=== PATIENT | female | born 1930 | race Caucasian/White ===

== ENCOUNTER 2016-12-12 12:18 | Emergency (ER) | payer MEDICARE, OTHER ==
[~2016-12-12] VITALS: Ht 157.5 cm; Wt 63.5 kg
[~2016-12-12 12:18] MED LIST: D50KC PO; ESCI5TAB PO; LVT.15T PO; MECL-124 PO; MICARDIS; OMEP20CA12 PO; ONDAN4ODT PO; RANI75TA30 PO; SULF1TAB35 PO; TRAM50TA2 PO; [UNRECOGNIZED DRUG - OTHER]
[2016-12-12] MEDS ORDERED: LIDOCAINE 2% VISCOUS 15 ML UDC PO ONE (13:00)
[2016-12-12] MEDS ORDERED: ANTACID SUSP 30 ML UDC (MYLANTA) PO ONE (13:00)
--- NOTE | 2016-12-12 13:03 | ED General ---
General Chief Complaint: General Problems/Pain Stated Complaint: NAUSEA Nursing Triage Note: AMB TO ROOM FELT FINE TODAY INTILL AFTER EATING A PIECE OF CHOCHLATE FEELING LIKE IT MAY BE STUCK HAS BEEN SPITTING UP PHELGM Nursing Sepsis Screen: No Definite Risk Source of Information: Patient Exam Limitations: No Limitations History of Present Illness Time Seen by Provider: 13:02 Initial Comments To ER with epigastric discomfort and a sensation of burning to the lower chest. This began after eating a piece of chocolate this morning. Prior to that she ate breakfast and took a large pill. She's had a Yasmine fundoplication is unable to vomit that she has been nauseated. Timing/Duration: 1-2 Days Severity: Moderate Allergies and Home Medications Allergies Coded Allergies: Cephalexin Monohydrate (Verified Allergy, Unknown, 02/17/15) Penicillins (Verified Allergy, Unknown, 02/17/15) Home Medications 1-2 QID (Reported) ?MG DAILY (Reported) Ergocalciferol 50,000 Unit Capsule 50,000 UNIT PO WEEKLY (Reported) Escitalopram Oxalate 5 Mg Tablet 1 EACH PO DAILY (Reported) Levothyroxine Sodium 150 Mcg Tablet 0.5 EACH PO DAILY (Reported) Meclizine Hcl 25 Mg Tab #30 1-2 TAB PO Q 4-6 HOURS PRN PRN FOR DIZZINESS Prescribed by: WILLIS BROTHERS on 11/05/11 0858 Omeprazole 20 Mg Capsule.dr #30 1 CAP PO DAILY (Reported) Ondansetron Hcl 4 Mg Tab #10 4 MG PO Q4H FOR NAUSEA AND VOMITING Prescribed by: WILLIS BROTHERS on 05/21/12 1534 Ranitidine Hcl 75 Mg Tablet 150 MG PO BID (Reported) Sulfamethoxazole/Trimethoprim 1 Each Tablet #20 1 TAB PO BID FOR INFECTION Prescribed by: GIL KYLE on 02/17/152128 Tramadol Hcl 50 Mg Tablet #20 50-100 MG PO Q6H PRN PRN flank pain Prescribed by: GIL KYLE on 02/17/152128 Constitutional: see HPI EENTM: see HPI Respiratory: no symptoms reported Cardiovascular: no symptoms reported Gastrointestinal: abdominal pain Genitourinary: no symptoms reported Musculoskeletal: no symptoms reported Skin: no symptoms reported Past Dklcftj-Mzwgrz-Gilgpy Hx Patient Social History Alcohol Use: Denies Use Recreational Drug Use: No Smoking Status: Never a Smoker Recent Foreign Travel: No Contact w/Someone Who Travel: No Recent Infectious Disease Expo: No Recent Hopitalizations: No Immunizations Up To Date Date of Influenza Vaccine: Jul 31, 2016 Surgeries HX Surgeries: Yes Surgeries: Abdominal, Gallbladder, Renal Respiratory Hx Respiratory Disorders: No Cardiovascular Hx Cardiac Disorders: Yes Cardiac Disorders: Hypertension Gastrointestinal Hx Gastrointestinal Disorders: Yes Endocrine Hx Endocrine Disorders: Yes Endocrine Disorders: Hypothyroidsim Physical Exam Vital Signs Vital Sign - Last 12Hours 12/12/16 12:29 Temp 97.8 Pulse 63 Resp 18 Pulse Ox 95 O2 Delivery Room Air Capillary Refill : Less Than 3 Seconds General Appearance: No Apparent Distress WD/WN Eyes: Bilateral Eye EOMI, Bilateral Eye Normal Inspection, Bilateral Eye PERRL HEENT: PERRL/EOMI TMs Normal Neck: Full Range of Motion Normal Inspection Respiratory: No Accessory Muscle Use No Respiratory Distress Gastrointestinal: Normal Bowel Sounds Non Tender Soft Extremity: Normal Capillary Refill Normal Inspection Neurologic/Psychiatric: Alert Oriented x3 Skin: Normal Color Warm/Dry Progress/Results/Core Measures Results/Orders Lab Results Laboratory Tests Test 12/12/16 13:14 Range/Units Amylase Level 68 25-125 U/L Basophils # (Auto) 0.0 0.0-0.1 10^3/uL Basophils (%) (Auto) 0 0-10 % Eosinophils # (Auto) 0.5 H 0.0-0.3 10^3/uL Eosinophils (%) (Auto) 6 0-10 % Hematocrit 41 35-52 % Hemoglobin 14.0 11.5-16.0 G/DL Lipase 53 8-78 U/L Lymphocytes # (Auto) 3.4 1.0-4.0 X 10^3 Lymphocytes (%) (Auto) 37 12-44 % Mean Corpuscular Hemoglobin 30 25-34 PG Mean Corpuscular Hemoglobin Concent 35 32-36 G/DL Mean Corpuscular Volume 88 80-99 FL Mean Platelet Volume 9.4 7.4-10.4 FL Monocytes # (Auto) 1.1 H 0.0-1.0 X 10^3 Monocytes (%) (Auto) 12 0-12 % Neutrophils # (Auto) 4.2 1.8-7.8 X 10^3 Neutrophils (%) (Auto) 46 42-75 % Platelet Count 336 130-400 10^3/uL Red Blood Count 4.60 4.35-5.85 10^6/uL Red Cell Distribution Width 14.0 10.0-14.5 % White Blood Count 9.2 4.3-11.0 10^3/uL My Orders Orders-GURDEEP RESENDEZ APRN Cbc With Automated Diff (12/12/16 13:00) Lipase (12/12/16 13:00) Amylase (12/12/16 13:00) Antacid Suspension (Mylanta Suspension (12/12/16 13:00) Lidocaine 2% Viscous 15 Ml (Xylocaine Vi (12/12/16 13:00) Ondansetron Oral Dissolve Tab (Zofran (12/12/16 13:15) Medications Given in ED Current Medications Medications Dose Ordered Sig/Hitesh Route Start Time Stop Time Status Last Admin Dose Admin Al Hydrox/Mg Hydrox/Simethicone 30 ml ONCE ONCE PO 12/12/16 13:00 12/12/16 13:02 DC 12/12/16 13:12 30 ML Lidocaine HCl 15 ml ONCE ONCE PO 12/12/16 13:00 12/12/16 13:02 DC 12/12/16 13:13 15 ML Ondansetron HCl 4 mg ONCE ONCE PO 12/12/16 13:15 12/12/16 13:16 DC 12/12/16 13:14 4 MG Vital Signs/I&O Vital Sign - Last 12Hours 12/12/16 12:29 Temp 97.8 Pulse 63 Resp 18 B/P Pulse Ox 95 O2 Delivery Room Air Departure Communication Progress Notes 1343-on arrival patient was given a glass of water to drink which she did without regurgitation or vomiting/dry heaving. At this time she feels better after GI cocktail and Zofran. Advised to use [id number] Pepcid or Maalox at home for any recurrent discomfort. Impression Impression: Primary Impression: Gastritis Qualified Code: K29.00 - Acute gastritis without bleeding Disposition: HOME, SELF-CARE Condition: Stable Departure-Patient Inst. Decision time for Depature: 13:44 Referrals: WILLIS AKERS MD (PCP/Family) Primary Care Physician Patient Instructions: Gastritis Add. Discharge Instructions: 1. Return to ER for any concerns 2. Follow-up with your doctor next week 3. You may use Maalox or Pepcid [id number] as directed on bottle for any recurrent pain. All discharge instructions reviewed with patient and/or family. Voiced understanding. GURDEEP RESENDEZ APRN Dec 12, 2016 13:02
[2016-12-12] MEDS ORDERED: ONDANSETRON 4 MG (ZOFRAN) ORAL DISSOLVE TAB PO ONE (13:15)
[2016-12-12 13:21] LABS: BASOPHILS % (AUTO) 0 % (0-10); EOSINOPHILS # (AUTO) 0.5 10^3/uL (0.0-0.3); EOSINOPHILS % (AUTO) 6 % (0-10); LYMPHOCYTES # (AUTO) 3.4 X 10^3 (1.0-4.0); LYMPHOCYTES % (AUTO) 37 % (12-44); MEAN CORPUSCULAR HEMOGLOBIN 30 PG (25-34); MEAN CORPUSCULAR HGB CONC 35 G/DL (32-36); MEAN CORPUSCULAR VOLUME 88 FL (80-99); MEAN PLATELET VOLUME 9.4 FL (7.4-10.4); MONOCYTES # (AUTO) 1.1 X 10^3 (0.0-1.0); MONOCYTES % (AUTO) 12 % (0-12); NEUTROPHILS # (AUTO) 4.2 X 10^3 (1.8-7.8); NEUTROPHILS % (AUTO) 46 % (42-75); PLATELET COUNT 336 10^3/uL (130-400); WHITE BLOOD COUNT 9.2 10^3/uL (4.3-11.0)
[2016-12-12 13:37] LABS: AMYLASE 68 U/L (25-125); LIPASE 53 U/L (8-78)
[2016-12-12 13:47] VITALS: BP 148/70
== END 2016-12-12 13:49 | disposition home or self-care (01) ==
LOC: EDUNIT# 12:18 → ER 12:23
DX: K29.00 Acute gastritis without bleeding (principal); I10 Essential (primary) hypertension; Z79.899 Other long term (current) drug therapy
CPT/HCPCS: 36415; 82150; 83690; 85025; 99281

== ENCOUNTER 2017-03-04 15:14 | Emergency (ER) | payer MEDICARE, OTHER ==
[~2017-03-04] VITALS: Ht 157.5 cm; Wt 65.8 kg
--- NOTE | 2017-03-04 16:01 | ED General ---
General Chief Complaint: Upper Extremity Stated Complaint: L ARM REDNESS/DISCOLORATION/NAUSEA/HEADACHE Nursing Triage Note: sTATED YESTERDAY WOKE WITH "LUMP" ON LEFT FOREARM THAT ITCHED. TODAY AREA IS RED AND HAS GROWN. FLAT NO PAIN. DENIES INJURY. ALSO STATES THAT SHE WAS NAUSEATED YESTERDAY AND TRIED TO VOMIT AND NOW HAS NECK AND HEAD PAIN. FREE ROM NOTED. A/O Nursing Sepsis Screen: No Definite Risk Source of Information: Patient, Family Exam Limitations: No Limitations History of Present Illness Time Seen by Provider: 16:00 Allergies and Home Medications Allergies Coded Allergies: Cephalexin Monohydrate (Verified Allergy, Unknown, 03/04/17) Penicillins (Verified Allergy, Unknown, 03/04/17) Home Medications Ergocalciferol 50,000 Unit Capsule, 50,000 UNIT PO WEEKLY, (Reported) Escitalopram Oxalate 5 Mg Tablet, 1 EACH PO DAILY, (Reported) Levothyroxine Sodium 150 Mcg Tablet, 0.5 EACH PO DAILY, (Reported) Meclizine Hcl 25 Mg Tab, 1-2 TAB PO Q 4-6 HOURS PRN, #30 Ref 0 FOR DIZZINESS Prescribed by: WILLIS BROTHERS on 11/05/11 0858 Omeprazole 20 Mg Capsule.dr, 1 CAP PO DAILY, #30 (Reported) Ondansetron Hcl 4 Mg Tab, 4 MG PO Q4H, #10 FOR NAUSEA AND VOMITING Prescribed by: WILLIS BROTHERS on 05/21/12 1534 Ranitidine Hcl 75 Mg Tablet, 150 MG PO BID, (Reported) Sulfamethoxazole/Trimethoprim 1 Each Tablet, 1 TAB PO BID, #20 Ref 0 FOR INFECTION Prescribed by: GIL KYLE on 02/17/152128 Tramadol Hcl 50 Mg Tablet, 50-100 MG PO Q6H PRN for flank pain, #20 Ref 0 Prescribed by: GIL KYLE on 02/17/152128 [Micardis] , ?MG DAILY, (Reported) [Mytab Chew] , 1-2 QID, (Reported) Past Wnohyfz-Nlyzaa-Ukiznk Hx Patient Social History Alcohol Use: Denies Use Recreational Drug Use: No Smoking Status: Never a Smoker 2nd Hand Smoke Exposure: No Recent Foreign Travel: No Contact w/Someone Who Travel: No Recent Infectious Disease Expo: No Recent Hopitalizations: No Immunizations Up To Date Tetanus Booster (TDap): More than 5yrs Date of Influenza Vaccine: Jul 31, 2016 Surgeries HX Surgeries: Yes (SPLEEN, ) Surgeries: Abdominal, Gallbladder, Renal, Tonsillectomy Respiratory Hx Respiratory Disorders: No Cardiovascular Hx Cardiac Disorders: Yes Cardiac Disorders: Hypertension Neurological Hx Neurological Disorders: No Genitourinary Hx Genitourinary Disorders: Yes Genitourinary Disorders: Kidney Stones Gastrointestinal Hx Gastrointestinal Disorders: Yes Gastrointestinal Disorders: Gastroesophageal Reflux Musculoskeletal Hx Musculoskeletal Disorders: No Endocrine Hx Endocrine Disorders: Yes Endocrine Disorders: Hypothyroidsim HEENT HX ENT Disorders: No Cancer Hx Cancer: No Psychosocial Hx Psychiatric Problems: No Integumentary HX Skin/Integumentary Disorder: No Blood Transfusions Hx Blood Disorders: No Physical Exam Vital Signs Vital Sign - Last 12Hours 03/04/17 15:34 Temp 98.8 Pulse 74 Resp 18 B/P (MAP) 184/87 Pulse Ox 99 Capillary Refill : Less Than 3 Seconds Progress/Results/Core Measures Results/Orders Lab Results Laboratory Tests Test 03/04/17 17:10 Range/Units White Blood Count 16.1 H 4.3-11.0 10^3/uL Red Blood Count 4.66 4.35-5.85 10^6/uL Hemoglobin 14.1 11.5-16.0 G/DL Hematocrit 42 35-52 % Mean Corpuscular Volume 90 80-99 FL Mean Corpuscular Hemoglobin 30 25-34 PG Mean Corpuscular Hemoglobin Concent 34 32-36 G/DL Red Cell Distribution Width 14.2 10.0-14.5 % Platelet Count 380 130-400 10^3/uL Mean Platelet Volume 9.6 7.4-10.4 FL Neutrophils (%) (Auto) 61 42-75 % Lymphocytes (%) (Auto) 24 12-44 % Monocytes (%) (Auto) 12 0-12 % Eosinophils (%) (Auto) 3 0-10 % Basophils (%) (Auto) 0 0-10 % Neutrophils # (Auto) 9.7 H 1.8-7.8 X 10^3 Lymphocytes # (Auto) 3.9 1.0-4.0 X 10^3 Monocytes # (Auto) 2.0 H 0.0-1.0 X 10^3 Eosinophils # (Auto) 0.4 H 0.0-0.3 10^3/uL Basophils # (Auto) 0.1 0.0-0.1 10^3/uL Neutrophils % (Manual) 56 % Lymphocytes % (Manual) 24 % Monocytes % (Manual) 16 % Eosinophils % (Manual) 2 % Band Neutrophils 2 % Toxic Granulation 1+ Blood Morphology Comment NORMAL Erythrocyte Sedimentation Rate 48 H 0-30 MM/HR Prothrombin Time 13.3 12.2-14.7 SEC INR Comment 1.0 0.8-1.4 Activated Partial Thromboplast Time 26 24-35 SEC Sodium Level 138 135-145 MMOL/L Potassium Level 4.2 3.6-5.0 MMOL/L Chloride Level 104 98-107 MMOL/L Carbon Dioxide Level 23 21-32 MMOL/L Anion Gap 11 5-14 MMOL/L Blood Urea Nitrogen 19 H 7-18 MG/DL Creatinine 1.65 H 0.60-1.30 MG/DL Estimat Glomerular Filtration Rate 29 BUN/Creatinine Ratio 12 Glucose Level 90 70-105 MG/DL Calcium Level 9.6 8.5-10.1 MG/DL Total Bilirubin 0.5 0.1-1.0 MG/DL Aspartate Amino Transf (AST/SGOT) 55 H 5-34 U/L Alanine Aminotransferase (ALT/SGPT) 39 0-55 U/L Alkaline Phosphatase 79 40-136 U/L C-Reactive Protein High Sensitivity 1.01 H 0.00-0.50 MG/DL Total Protein 7.4 6.4-8.2 G/DL Albumin 3.8 3.2-4.5 G/DL My Orders Orders - LALO BECKHAM Cbc With Automated Diff (03/04/17 16:41) Comprehensive Metabolic Panel (03/04/17 16:41) Hs C Reactive Protein (03/04/17 16:41) Erythrocyte Sedimentation Rate (03/04/17 16:41) Ns Iv 1000 Ml (Sodium Chloride 0.9%) (03/04/17 16:41) Protime With Inr (03/04/17 16:41) Partial Thromboplastin Time (03/04/17 16:41) Manual Differential (03/04/17 17:10) Vital Signs/I&O Vital Sign - Last 12Hours 03/04/17 15:34 Temp 98.8 Pulse 74 Resp 18 B/P (MAP) 184/87 Pulse Ox 99 Blood Pressure Mean: 119 Departure Communication Progress Notes Patient refused IV fluids and IV. Impression Impression: Primary Impression: Ecchymosis of forearm Additional Impression: Volume depletion Disposition: 01 HOME, SELF-CARE Condition: Improved Departure-Patient Inst. Decision time for Depature: 18:15 Referrals: WILLIS AKERS MD (PCP/Family) Primary Care Physician Patient Instructions: Dehydration, Adult (DC) Add. Discharge Instructions: All discharge instructions reviewed with patient and/or family. Voiced understanding. Medications as instructed. Continue usual home medications. Elevate the left forearm on pillows above the level of the heart. Ice packs or heating pads as needed for pain. Shower with antibacterial soap. Follow-up with your family practitioner for recheck this week, call first thing Sunday morning for appointment time. Return to the emergency department for worsened swelling, pain, bruising, redness, fever, vomiting, abdominal swelling, rectal bleeding, black stools, vomiting blood, discoloration of the fingers, numbness, weakness, chest pain, shortness of breath, difficulty swallowing, or any other concerns. Scripts Ondansetron (Ondansetron Odt) 8 Mg Tab.rapdis 8 MG PO Q6H Y for NAUSEA/VOMITING-1ST LINE, #10 TAB 0 Refills Prov: LALO BECKHAM 03/04/17 Sulfamethoxazole/Trimethoprim (Bactrim Ds Tablet) 1 Each Tablet 1 EACH PO BID, #14 TAB 0 Refills Prov: LALO BECKHAM 03/04/17 LALO BECKHAM March 04, 2017 16:00
[2017-03-04] MEDS ORDERED: NS IV 1000 ML 1,000 ML IV ONE (16:41)
[2017-03-04 17:21] LABS: BASOPHILS # (AUTO) 0.1 10^3/uL (0.0-0.1); BASOPHILS % (AUTO) 0 % (0-10); EOSINOPHILS # (AUTO) 0.4 10^3/uL (0.0-0.3); EOSINOPHILS % (AUTO) 3 % (0-10); LYMPHOCYTES # (AUTO) 3.9 X 10^3 (1.0-4.0); LYMPHOCYTES % (AUTO) 24 % (12-44); MEAN CORPUSCULAR HEMOGLOBIN 30 PG (25-34); MEAN CORPUSCULAR HGB CONC 34 G/DL (32-36); MEAN CORPUSCULAR VOLUME 90 FL (80-99); MEAN PLATELET VOLUME 9.6 FL (7.4-10.4); MONOCYTES % (AUTO) 12 % (0-12); NEUTROPHILS # (AUTO) 9.7 X 10^3 (1.8-7.8); NEUTROPHILS % (AUTO) 61 % (42-75); PLATELET COUNT 380 10^3/uL (130-400); RED BLOOD COUNT 4.66 10^6/uL (4.35-5.85); RED CELL DISTRIBUTION WIDTH 14.2 % (10.0-14.5); WHITE BLOOD COUNT 16.1 10^3/uL (4.3-11.0)
[2017-03-04 17:29] LABS: PROTHROMBIN TIME PATIENT 13.3 SEC (12.2-14.7)
[2017-03-04 17:40] LABS: ALBUMIN 3.8 G/DL (3.2-4.5); BILIRUBIN,TOTAL 0.5 MG/DL (0.1-1.0); CALCIUM 9.6 MG/DL (8.5-10.1); CREATININE SERUM 1.65 MG/DL (0.60-1.30); POTASSIUM 4.2 MMOL/L (3.6-5.0); TOTAL PROTEIN 7.4 G/DL (6.4-8.2); hs C REACTIVE PROTEIN 1.01 MG/DL (0.00-0.50)
[2017-03-04 17:45] LABS: BAND NEUTROPHILS 2 %; EOSINOPHILS % (MANUAL) 2 %; LYMPHOCYTES % (MANUAL) 24 %; NEUTROPHILS % (MANUAL) 56 %
[2017-03-04 17:54] LABS: ERYTHROCYTE SEDIMENTATION RATE 48 MM/HR (0-30)
[2017-03-04] MEDS ORDERED: SULF1TAB35 PO (18:16)
[2017-03-04] MEDS ORDERED: ONDA8TAB13 PO (18:16)
[2017-03-04] MEDS ORDERED: RX-TRIMETH/SULFA. 160-800 MG (BACTRIM DS) TAB PPK#2 PO STA (18:18)
[2017-03-04] MEDS ORDERED: RX-ONDANSETRON 4 MG ODT (ZOFRAN) PPK #4 PO STA (18:27)
[2017-03-04 18:34] VITALS: BP 201/83
[2017-03-04] MEDS ORDERED: cloNIDine 0.1 MG (CATAPRES) TAB ONE (18:34)
[2017-03-04] MEDS ORDERED: cloNIDine 0.1 MG (CATAPRES) TAB PO ONE (18:45)
== END 2017-03-04 18:42 | disposition home or self-care (01) ==
LOC: EDUNIT# 15:14 → ER 15:16
DX: R23.3 Spontaneous ecchymoses (principal); I10 Essential (primary) hypertension; Z79.899 Other long term (current) drug therapy
CPT/HCPCS: 36415; 80053; 85007; 85027; 85610; 85652; 85730; 86141; 99283

== ENCOUNTER 2017-08-14 09:55 | Emergency (ER) | payer MEDICARE, OTHER ==
[~2017-08-14] VITALS: Ht 157.5 cm; Wt 63.5 kg
[~2017-08-14 09:55] MED LIST changes: +ONDA8TAB13 PO
[2017-08-14] MEDS ORDERED: COLE1TAB PO (10:17)
[2017-08-14] MEDS ORDERED: BUDE10.2 IH (10:17)
[2017-08-14] MEDS ORDERED: LEVO500T80 PO (10:27)
[2017-08-14] MEDS ORDERED: KETOROLAC 30 MG/ML VIAL IVP STA (10:28)
[2017-08-14 10:30] LABS: BILIRUBIN,URINE NEGATIVE (NEGATIVE); KETONES,URINE NEGATIVE (NEGATIVE); LEUKOCYTE ESTERASE ,URINE 3+ (NEGATIVE); NITRITE,URINE NEGATIVE (NEGATIVE); PH,URINE 5 (5-9); PROTEIN,URINE NEGATIVE (NEGATIVE); UROBILINOGEN,URINE NORMAL (NORMAL)
[2017-08-14 10:38] LABS: WBC,URINE >100 /HPF
--- NOTE | 2017-08-14 10:42 | ED Abdominal Pain ---
General Chief Complaint: Abdominal/GI Problems Stated Complaint: LOWER ABD PAIN Nursing Triage Note: PT CO OF LOWER ABD PAIN STARTED THIS AM, STATES HAD ON SUNDAY BUT IMPROVED AND CAME BACK, STATES DOES HAVE SOME PAIN AND BURNING UPON URINATION Sepsis Screen: No Definite Risk Source of Information: Patient Exam Limitations: No Limitations History of Present Illness Time Seen By Provider: 10:20 Initial Comments Here with report of lower abdominal pain that started this morning. She actually reports that she had this a few days ago and it went away. Last Sunday she was seen at the urgent care and started on antibiotic for possible pneumonia. She states that she's been feeling a little crummy over the past several days prior to that with fatigue. Denies shortness of breath, nausea, vomiting or diarrhea. Timing/Duration: 12 Hours Severity/Quality: Moderate Location: RLQ, LLQ, Suprapubic Radiation: No Radiation Activities at Onset: None Associated Symptoms: No Back Pain, No Chest Pain, No Fever/Chills, Fatigue, No Nausea/Vomiting, No Weakness Allergies and Home Medications Allergies Coded Allergies: Cephalexin Monohydrate (Verified Allergy, Unknown, 03/04/17) Penicillins (Verified Allergy, Unknown, 03/04/17) Home Medications Budesonide/Formoterol Fumarate 10.2 Gm Hfa.aer.ad, 2 PUFF IH BID, (Reported) Colestipol HCl 1 Gm Tablet, 1 GM PO BID, (Reported) Ergocalciferol 50,000 Unit Capsule, 50,000 UNIT PO WEEKLY, (Reported) Levofloxacin 500 Mg Tablet, 500 MG PO DAILY, (Reported) Levothyroxine Sodium 150 Mcg Tablet, 0.5 EACH PO DAILY, (Reported) Omeprazole 20 Mg Capsule.dr, 1 CAP PO DAILY, #30 (Reported) [Micardis] , ?MG DAILY, (Reported) [Mytab Chew] , 1-2 QID, (Reported) Review of Systems Constitutional: see HPI, No chills, No fever EENTM: No Symptoms Reported Respiratory: See HPI, Denies Cough Cardiovascular: No Symptoms Reported Gastrointestinal: See HPI, Abdominal Pain, Denies Diarrhea, Denies Nausea, Denies Vomiting Genitourinary: See HPI Musculoskeletal: no symptoms reported Skin: no symptoms reported All Other Systems Reviewed Negative Unless Noted: Yes Past Uxhdspo-Tpxnts-Vlmbjx Hx Patient Social History Alcohol Use: Denies Use Recreational Drug Use: No Smoking Status: Never a Smoker 2nd Hand Smoke Exposure: No Recent Foreign Travel: No Contact w/Someone Who Travel: No Recent Infectious Disease Expo: No Recent Hopitalizations: No Physical Abuse: No Sexual Abuse: No Immunizations Up To Date Tetanus Booster (TDap): More than 5yrs Date of Influenza Vaccine: Jul 31, 2016 Surgeries History of Surgeries: Yes (SPLEEN, ) Surgeries: Abdominal, Gallbladder, Renal, Tonsillectomy Respiratory History of Respiratory Disorde: No Cardiovascular History of Cardiac Disorders: Yes Cardiac Disorders: Hypertension Neurological History of Neurological Disord: No Genitourinary Genitourinary Disorders: Kidney Stones Gastrointestinal History of Gastrointestinal Di: Yes Gastrointestinal Disorders: Gastroesophageal Reflux Musculoskeletal History of Musculoskeletal Dis: No Endocrine History of Endocrine Disorders: Yes Endocrine Disorders: Hypothyroidsim Cancer History of Cancer: No Psychosocial History of Psychiatric Problem: No Suicide Risk Score: 0 Integumentary History of Skin or Integumenta: No Blood Transfusions History of Blood Disorders: No Family Medical History Significant Family History: No Pertinent Family Hx Physical Exam Vital Signs VS - Last 72 Hours, by Label 08/14/17 09:55 Temp 97.7 Pulse 82 Resp 16 B/P (MAP) 187/83 Pulse Ox 96 Capillary Refill : Less Than 3 Seconds General Appearance: WD/WN, no apparent distress Neck: full range of motion, supple Respiratory: lungs clear, normal breath sounds Cardiovascular: regular rate, rhythm, no murmur Gastrointestinal: normal bowel sounds, soft, tenderness (mild suprapubic) Extremities: non-tender, normal inspection Back: normal inspection, no CVA tenderness, no vertebral tenderness Neurologic/Psychiatric: alert, oriented x 3 Skin: normal color, warm/dry Progress/Results/Core Measures Results/Orders Lab Results Laboratory Tests Test 08/14/17 10:15 08/14/17 10:30 Range/Units Urine Color YELLOW Urine Clarity CLEAR Urine pH 5 5-9 Urine Specific [place] 1.010 L 1.016-1.022 Urine Protein NEGATIVE NEGATIVE Urine Glucose (UA) NEGATIVE NEGATIVE Urine Ketones NEGATIVE NEGATIVE Urine Nitrite NEGATIVE NEGATIVE Urine Bilirubin NEGATIVE NEGATIVE Urine Urobilinogen NORMAL NORMAL MG/DL Urine Leukocyte Esterase 3+ H NEGATIVE Urine RBC (Auto) 3+ H NEGATIVE Urine RBC NONE /HPF Urine WBC >100 H /HPF Urine Crystals NONE /LPF Urine Bacteria FEW H /HPF Urine Casts NONE /LPF Urine Mucus NEGATIVE /LPF Urine Culture Indicated YES White Blood Count 13.8 H 4.3-11.0 10^3/uL Red Blood Count 4.53 4.35-5.85 10^6/uL Hemoglobin 13.3 11.5-16.0 G/DL Hematocrit 40 35-52 % Mean Corpuscular Volume 88 80-99 FL Mean Corpuscular Hemoglobin 29 25-34 PG Mean Corpuscular Hemoglobin Concent 34 32-36 G/DL Red Cell Distribution Width 14.2 10.0-14.5 % Platelet Count 430 H 130-400 10^3/uL Mean Platelet Volume 9.5 7.4-10.4 FL Neutrophils (%) (Auto) 59 42-75 % Lymphocytes (%) (Auto) 24 12-44 % Monocytes (%) (Auto) 13 H 0-12 % Eosinophils (%) (Auto) 5 0-10 % Basophils (%) (Auto) 0 0-10 % Neutrophils # (Auto) 8.1 H 1.8-7.8 X 10^3 Lymphocytes # (Auto) 3.3 1.0-4.0 X 10^3 Monocytes # (Auto) 1.7 H 0.0-1.0 X 10^3 Eosinophils # (Auto) 0.6 H 0.0-0.3 10^3/uL Basophils # (Auto) 0.1 0.0-0.1 10^3/uL Sodium Level 137 135-145 MMOL/L Potassium Level 3.9 3.6-5.0 MMOL/L Chloride Level 106 98-107 MMOL/L Carbon Dioxide Level 20 L 21-32 MMOL/L Anion Gap 11 5-14 MMOL/L Blood Urea Nitrogen 15 7-18 MG/DL Creatinine 1.35 H 0.60-1.30 MG/DL Estimat Glomerular Filtration Rate 37 BUN/Creatinine Ratio 11 Glucose Level 96 70-105 MG/DL Calcium Level 10.0 8.5-10.1 MG/DL Total Bilirubin 0.6 0.1-1.0 MG/DL Aspartate Amino Transf (AST/SGOT) 23 5-34 U/L Alanine Aminotransferase (ALT/SGPT) 17 0-55 U/L Alkaline Phosphatase 86 40-136 U/L Total Protein 8.1 6.4-8.2 GM/DL Albumin 3.8 3.2-4.5 GM/DL My Orders Orders - KATIANA CHANDLER MD Ua Culture If Indicated (08/14/17 10:12) Cbc With Automated Diff (08/14/17 10:28) Comprehensive Metabolic Panel (08/14/17 10:28) Saline Lock/Iv-Start (08/14/17 10:28) Ketorolac Injection (Toradol Injection) (08/14/17 10:28) Chest Pa/Lat (2 View) (08/14/17 10:28) Urine Culture (08/14/17 10:15) Ns Iv 500 Ml (Sodium Chloride 0.9%) (08/14/17 11:57) Ns Iv 500 Ml (Sodium Chloride 0.9%) (08/14/17 11:50) Medications Given in ED Current Medications Medications Dose Ordered Sig/Hitesh Route Start Time Stop Time Status Last Admin Dose Admin Sodium Chloride 500 ml @ 0 mls/hr Q0M ONCE IV 08/14/17 11:57 08/14/17 11:58 DC 08/14/17 11:59 500 MLS/HR Vital Signs/I&O Vital Sign - Last 12Hours 08/14/17 09:55 Temp 97.7 Pulse 82 Resp 16 B/P (MAP) 187/83 Pulse Ox 96 Blood Pressure Mean: 117 Progress Note : Progress Note Seen and evaluated. UA ordered. Chest x-ray ordered to verify pneumonia. Did discuss with the patient regarding pain control. She states she is certain moderate amount but it is better after she took aspirin earlier. Due to persistent pain, IV established and labs drawn. Toradol 15 mg IV ordered. Monitor patient. 1200: Pain improved. Patient does have significant findings of urinary tract infection that appears to be not susceptible to Levaquin as she has been on this for several days. We will give 500 ml normal saline and prescribe outpatient nitrofurantoin. Discharged home with return precautions. Patient and family verbalize understanding instructions and agreement with plan. She will stay with her daughter overnight for the next one to 2 days. Diagnostic Imaging Diagonstic Imaging: Xray Plain Films/CT/US/NM/MRI: chest Comments VIA [facility]. [place], [place] NAME: HARRIS KING REC#: [id number] PT STATUS: REG ER : 1930 PHYSICIAN: KATIANA CHANDLER MD ADMIT DATE: 08/14/17/ER Draft Date of Exam:08/14/17 CHEST PA/LAT (2 VIEW) PA and lateral chest 11:24 AM. INDICATION: Shortness of breath. The heart size is within normal limits and stable when compared to 05/21/2012. The lungs are clear. There is no sign of failure, pneumonia, or of a pleural effusion to suggest an acute abnormality. The mediastinum is not widened. The osseous structures are intact. IMPRESSION: There is no evidence for an acute cardiopulmonary abnormality. Dictated on workstation # [id number] Dict: 08/14/17 1118 Trans: 08/14/17 1120 [id number] Interpreted by: CHARLIE RICO MD Electronically signed by: Departure Impression Impression: Primary Impression: UTI (urinary tract infection) Qualified Codes: N30.00 - Acute cystitis without hematuria Additional Impression: Lower abdominal pain Disposition: HOME, SELF-CARE Condition: Stable Departure-Patient Inst. Decision time for Depature: 12:04 Referrals: WILLIS AKERS MD (PCP/Family) Primary Care Physician Patient Instructions: Urinary Tract Infection, Adult (DC), Acute Abdomen ( Belly Pain), Adult (DC) Add. Discharge Instructions: All discharge instructions reviewed with patient and/or family. Voiced understanding. Treatment plan fluids. Follow-up with your Dr. in a few days for recheck. Return for worsening, fever, vomiting, weakness, breathing problems or other concerns as needed. You may take Tylenol 650 mg every 8 hours as needed for fever or pain. You may take ibuprofen 400 mg every 8 hours as needed for fever or pain as well. Limit ibuprofen use to prevent irritation of the kidneys. Scripts Nitrofurantoin Macrocrystal (Nitrofurantoin) 100 Mg Capsule 100 MG PO BID, #14 CAP 0 Refills Prov: KATIANA CHANDLER MD 08/14/17 KATIANA CHANDLER MD Aug 14, 2017 10:42
[2017-08-14 10:45] LABS: BASOPHILS # (AUTO) 0.1 10^3/uL (0.0-0.1); BASOPHILS % (AUTO) 0 % (0-10); EOSINOPHILS # (AUTO) 0.6 10^3/uL (0.0-0.3); EOSINOPHILS % (AUTO) 5 % (0-10); LYMPHOCYTES # (AUTO) 3.3 X 10^3 (1.0-4.0); LYMPHOCYTES % (AUTO) 24 % (12-44); MEAN CORPUSCULAR HEMOGLOBIN 29 PG (25-34); MEAN CORPUSCULAR HGB CONC 34 G/DL (32-36); MEAN CORPUSCULAR VOLUME 88 FL (80-99); MEAN PLATELET VOLUME 9.5 FL (7.4-10.4); MONOCYTES # (AUTO) 1.7 X 10^3 (0.0-1.0); MONOCYTES % (AUTO) 13 % (0-12); NEUTROPHILS # (AUTO) 8.1 X 10^3 (1.8-7.8); NEUTROPHILS % (AUTO) 59 % (42-75); PLATELET COUNT 430 10^3/uL (130-400); RED BLOOD COUNT 4.53 10^6/uL (4.35-5.85); RED CELL DISTRIBUTION WIDTH 14.2 % (10.0-14.5); WHITE BLOOD COUNT 13.8 10^3/uL (4.3-11.0)
[2017-08-14 11:07] LABS: ALBUMIN 3.8 GM/DL (3.2-4.5); BILIRUBIN,TOTAL 0.6 MG/DL (0.1-1.0); CREATININE SERUM 1.35 MG/DL (0.60-1.30); POTASSIUM 3.9 MMOL/L (3.6-5.0); TOTAL PROTEIN 8.1 GM/DL (6.4-8.2)
--- NOTE | 2017-08-14 11:21 | Diagnostic Imaging Report ---
PA and lateral chest 11:24 AM. INDICATION: Shortness of breath. The heart size is within normal limits and stable when compared to 05/21/2012. The lungs are clear. There is no sign of failure, pneumonia, or of a pleural effusion to suggest an acute abnormality. The mediastinum is not widened. The osseous structures are intact. IMPRESSION: There is no evidence for an acute cardiopulmonary abnormality. Dictated by: Dictated on workstation # [id number]
[2017-08-14] MEDS ORDERED: NS IV 500 ML 500 ML ONE (11:50)
[2017-08-14] MEDS ORDERED: NS IV 500 ML 500 ML IV ONE (11:57)
[2017-08-14] MEDS ORDERED: NITR100C PO (12:05)
[2017-08-14 12:25] VITALS: BP 164/83
== END 2017-08-14 12:27 | disposition home or self-care (01) ==
LOC: EDUNIT# 09:55 → ER 09:57
DX: N39.0 Urinary tract infection, site not specified (principal); I10 Essential (primary) hypertension; E03.9 Hypothyroidism, unspecified; K21.9 Gastro-esophageal reflux disease without esophagitis; Z87.442 Personal history of urinary calculi; Z79.899 Other long term (current) drug therapy
CPT/HCPCS: 36415; 71020; 80053; 81000; 85025; 87088; 87186; 96374

== ENCOUNTER → 2019-02-06 | Outpatient (CLI) | payer MEDICARE, OTHER ==
[~2019-02-06] MED LIST changes: +BUDE10.2 IH; +COLE1TAB PO; +LEVO500T80 PO; +NITR100C PO
== END ==
LOC: CARD 10:44
PROVIDERS: ATTEND Internal Medicine Cardiovascular Disease
DX: I10 Essential (primary) hypertension (principal); R55 Syncope and collapse; R07.9 Chest pain, unspecified; E03.9 Hypothyroidism, unspecified
CPT/HCPCS: 93306

== ENCOUNTER → 2019-02-12 | Outpatient (CLI) | payer MEDICARE, OTHER ==
[~2019-02-12] VITALS: Ht 157.5 cm; Wt 64.9 kg
[~2019-02-12] MED LIST changes: +CATHETER FLUSH 10 ML SYR IV PRN
[2019-02-12 13:01] VITALS: BP 186/80
--- NOTE | 2019-02-12 17:46 | STRESS TEST ---
DATE OF SERVICE: EXERCISE MYOVIEW STRESS TEST REPORT REFERRING PHYSICIAN: Dr. Karina Selby. Baseline heart rate is 53, baseline blood pressure 134/71, baseline EKG is sinus rhythm with no ischemic changes. In summary, the patient was injected with 10.11 mCi of technetium-99 Myoview and the resting images were obtained. Then, the patient started exercising with a baseline heart rate, blood pressure and EKG mentioned above. The patient was able to exercise for a total of 4 minutes on standard Rhys protocol. With peak exercise level, EKG was showing nondiagnostic changes. The patient was injected with 29.6 mCi of technetium-99 Myoview. Peak heart rate was 118 beats per minute, which is 88% of maximum expected heart rate. During recovery, heart rate and blood pressure returned to baseline. EKG returned to baseline. The resting and stress images were reviewed and compared in the short axis, horizontal long axis, and vertical long axis views. Review of the images showed breast attenuation with mild decreased uptake at the inferoapical segment with mild reversibility. SSS is 5, SDS is 3, TID value 1.15. On the gated images, the left ventricle appeared to be in normal size with normal contractility. Calculated ejection fraction is 73%. IN CONCLUSION: 1. Fair exercise tolerance, a total of 4 minutes on standard Rhys protocol, total of 4.7 METS achieving 88% of maximum expected heart rate. 2. Nondiagnostic EKG changes with exercise returned to baseline during recovery. 3. Mild decreased uptake at the inferoapical segment with mild reversibility. Overall, nondiagnostic finding. 4. Normal left ventricular size with normal contractility. Calculated ejection fraction 73%. Job ID: [id number] DocumentID: [id number] Dictated Date: 02/12/2019 15:15:58 Top Polisher Date: 02/12/2019 17:45:29 Dictated By: ROYA GORDON MD
== END ==
LOC: CARD 10:50
PROVIDERS: ATTEND Internal Medicine Cardiovascular Disease
DX: I10 Essential (primary) hypertension (principal); R07.9 Chest pain, unspecified; R55 Syncope and collapse; E03.9 Hypothyroidism, unspecified
CPT/HCPCS: 78452; 93017

== ENCOUNTER 2019-03-03 19:11 | Emergency (ER) | payer MEDICARE, OTHER ==
[~2019-03-03] VITALS: Ht 154.9 cm; Wt 64.9 kg
[~2019-03-03 19:11] MED LIST changes: -CATHETER FLUSH 10 ML SYR IV PRN
--- OUTSIDE RECORDS SUMMARY | 2019-03-03 19:16 | XMS REPORT | Continuity of Care Document ---
Author Organization Unknown Address Unknown Allergies Active Description Code Type Severity Reaction Onset Reported/Identified Relationship to Patient Clinical Status Yes KEFLEX KEFLEX SEVERE Yes PENICILLIN G POTASSIUM PENICILLIN G POTASSI SEVERE Yes KEFLEX SEVERE DERMATOLOGICAL - ÓSCAR Yes PENICILLIN G POTASSIUM SEVERE DERMATOLOGICAL - ÓSCAR Yes Cephalexin Monohydrate [id number] Drug Allergy Unknown N/A 03/04/2017 Yes Penicillins [id number] Drug Allergy Unknown N/A 03/04/2017 Medications Medication Packaging Start Date Stop Date Route Dosage Sig KETOROLAC VIAL INJ 30 MG/CC (TORADOL VIAL) MG 01/30/2019 01/30/2019 PRN ONCE NORMAL SALINE 1000CC IV BAG INJ 0.9 % (NS 1000CC IV BAG) ml 01/30/2019 02/14/2019 CONTINUOUSEVERY 0 Hour NITROSTAT TAB 0.4 MG (NITROGLYCERINE) MG 01/30/2019 01/30/2019 PRN ONCE LORAZEPAM 1CC VIAL INJ 2 MG/CC (ATIVAN VIAL) MG 01/30/2019 02/06/2019 PRN Q4H Problems Date Dx Coded Attending Type Code Diagnosis Diagnosed By 11/05/2011 Ot 401.9 HYPERTENSION NOS 11/05/2011 Ot 780.4 DIZZINESS AND GIDDINESS 11/05/2011 Ot 782.0 SKIN SENSATION DISTURB 11/05/2011 Ot 789.00 ABDOMINAL PAIN, UNSPECIFIED SITE 11/05/2011 Ot V12.54 PERSONAL HX OF TIA, CEREBRAL INFARCTION 11/05/2011 Ot V58.69 OTH MED,LT, CURRENT USE 01/25/2012 Ot 780.4 DIZZINESS AND GIDDINESS 01/25/2012 Ot V57.1 PHYSICAL THERAPY NEC 05/21/2012 Ot 562.10 DIVERTICULOSIS COLON (W/O MENT OF HEMORR 05/21/2012 Ot 780.2 SYNCOPE AND COLLAPSE 05/21/2012 Ot 787.01 NAUSEA WITH VOMITING 05/21/2012 Ot 789.02 ABDOMINAL PAIN, LEFT UPPER QUADRANT 05/21/2012 Ot V12.54 PERSONAL HX OF TIA, CEREBRAL INFARCTION 02/17/2015 GIL KYLE DO Ot 599.0 URIN TRACT INFECTION NOS 02/17/2015 GIL KYLE DO Ot 789.00 ABDOMINAL PAIN, UNSPECIFIED SITE 12/12/2016 GURDEEP RESENDEZ APRN Ot I10 ESSENTIAL (PRIMARY) HYPERTENSION 12/12/2016 GURDEEP RESENDEZ CLEANING MATRON Ot K29.00 ACUTE GASTRITIS WITHOUT BLEEDING 12/12/2016 GURDEEP RESENDEZ CLEANING MATRON Ot R10.13 EPIGASTRIC PAIN 12/12/2016 GURDEEP RESENDEZ CLEANING MATRON Ot Z79.899 OTHER POLICE MANAGER (CURRENT) DRUG THERAPY 12/13/2016 GURDEEP RESENDEZ CLEANING MATRON Ot I10 ESSENTIAL (PRIMARY) HYPERTENSION 12/13/2016 GURDEEP RESENDEZ APRN Ot K29.00 ACUTE GASTRITIS WITHOUT BLEEDING 12/13/2016 GURDEEP RESENDEZ APRN Ot R10.13 EPIGASTRIC PAIN 12/13/2016 GURDEEP RESENDEZ APRN Ot Z79.899 OTHER POLICE MANAGER (CURRENT) DRUG THERAPY 03/04/2017 LALO REYNA Ot I10 ESSENTIAL (PRIMARY) HYPERTENSION 03/04/2017 LALO REYNA Ot R23.3 SPONTANEOUS ECCHYMOSES 03/04/2017 LALO REYNA Ot Z79.899 OTHER PRISON (CURRENT) DRUG THERAPY 03/07/2017 LALO REYNA Ot I10 ESSENTIAL (PRIMARY) HYPERTENSION 03/07/2017 LALO REYNA Ot R23.3 SPONTANEOUS ECCHYMOSES 03/07/2017 LALO REYNA Ot Z79.899 OTHER PRISON (CURRENT) DRUG THERAPY 08/14/2017 KATIANA CHANDLER MD Ot E03.9 HYPOTHYROIDISM, UNSPECIFIED 08/14/2017 KATIANA CHANDLER MD Ot I10 ESSENTIAL (PRIMARY) HYPERTENSION 08/14/2017 KATIANA CHANDLER MD Ot K21.9 GASTRO-ESOPHAGEAL REFLUX DISEASE WITHOUT 08/14/2017 KATIANA CHANDLER MD Ot N39.0 URINARY TRACT INFECTION, SITE NOT SPECIF 08/14/2017 KATIANA CHANDLER MD Ot R10.9 UNSPECIFIED ABDOMINAL PAIN 08/14/2017 KATIANA CHANDLER MD Ot Z79.899 OTHER POLICE MANAGER (CURRENT) DRUG THERAPY 08/14/2017 KATIANA CHANDLER MD Ot Z87.442 PERSONAL HISTORY OF URINARY CALCULI 08/16/2017 KATIANA CHANDLER MD Ot E03.9 HYPOTHYROIDISM, UNSPECIFIED 08/16/2017 KATIANA CHANDLER MD Ot I10 ESSENTIAL (PRIMARY) HYPERTENSION 08/16/2017 KATIANA CHANDLER MD Ot K21.9 GASTRO-ESOPHAGEAL REFLUX DISEASE WITHOUT 08/16/2017 KATIANA CHANDLER MD Ot N39.0 URINARY TRACT INFECTION, SITE NOT SPECIF 08/16/2017 KATIANA CHANDLER MD Ot R10.9 UNSPECIFIED ABDOMINAL PAIN 08/16/2017 KATIANA CHANDLER MD, Ot Z79.899 OTHER POLICE MANAGER (CURRENT) DRUG THERAPY 08/16/2017 KATIANA CHANDLER MD Ot Z87.442 PERSONAL HISTORY OF URINARY CALCULI 08/24/2017 Karina Selby W 244.9 UNSPECIFIED HYPOTHYROIDISM 08/24/2017 Karina Selby W E03.9 HYPOTHYROIDISM, UNSPECIFIED 08/24/2017 Stephanie Selbya W 244.9 UNSPECIFIED HYPOTHYROIDISM 08/24/2017 Stephanie Selbya W E03.9 HYPOTHYROIDISM, UNSPECIFIED 01/16/2018 ANGEL KRUSE, BARBY Baker Ot 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, LEFT SIDE 02/20/2018 ANGEL KRUSE, BARBY Baker Ot 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, LEFT SIDE 03/17/2018 ANGEL KRUSE, BARBY Baker Ot 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, LEFT SIDE 03/18/2018 ANGEL KRUSE, BARBY Baker Ot 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, LEFT SIDE 03/19/2018 ANGEL KRUSE, BARBY Baker Ot 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, LEFT SIDE 03/29/2018 Stephanie Selbya W 244.9 UNSPECIFIED HYPOTHYROIDISM 03/29/2018 Stephanie Selbya W E03.9 HYPOTHYROIDISM, UNSPECIFIED 03/29/2018 Stephanie Selbya W 244.9 UNSPECIFIED HYPOTHYROIDISM 03/29/2018 Stephanie Selbya W E03.9 HYPOTHYROIDISM, UNSPECIFIED 04/01/2018 ANGEL KRUSE, BARBY Baker Ot 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, LEFT SIDE 04/02/2018 Karina Selby W 796.4 OTHER ABNORMAL CLINICAL FINDINGS 04/02/2018 Karina Selby W 796.4 OTHER ABNORMAL CLINICAL FINDINGS 04/19/2018 ANGEL KRUSE, BARYB Baker Ot 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, LEFT SIDE 04/24/2018 BARBY ORTIZ MD Ot 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, LEFT SIDE 06/19/2018 Ot E03.9 HYPOTHYROIDISM, UNSPECIFIED 06/19/2018 Ot I10 ESSENTIAL ( PRIMARY) HYPERTENSION 06/19/2018 Ot K21.9 GASTRO- ESOPHAGEAL REFLUX DISEASE WITHOUT 06/19/2018 Ot R55 SYNCOPE AND COLLAPSE 06/19/2018 Ot Z87.442 PERSONAL HISTORY OF URINARY CALCULI 06/19/2018 Ot Z88.0 ALLERGY STATUS TO PENICILLIN 06/19/2018 Ot Z88.1 ALLERGY STATUS TO OTHER ANTIBIOTIC AGENT 06/19/2018 Ot Z90.89 ACQUIRED ABSENCE OF OTHER ORGANS 06/25/2018 Ot E03.9 HYPOTHYROIDISM, UNSPECIFIED 06/25/2018 Ot I10 ESSENTIAL ( PRIMARY) HYPERTENSION 06/25/2018 Ot K21.9 GASTRO- ESOPHAGEAL REFLUX DISEASE WITHOUT 06/25/2018 Ot R55 SYNCOPE AND COLLAPSE 06/25/2018 Ot Z87.442 PERSONAL HISTORY OF URINARY CALCULI 06/25/2018 Ot Z88.0 ALLERGY STATUS TO PENICILLIN 06/25/2018 Ot Z88.1 ALLERGY STATUS TO OTHER ANTIBIOTIC AGENT 06/25/2018 Ot Z90.89 ACQUIRED ABSENCE OF OTHER ORGANS 11/07/2018 Bal Karina W 558.9 OTHER AND UNSPECIFIED NONINFECTIOUS GASTROENTERITIS AND COLITIS 11/07/2018 Karina Selby K52.9 NONINFECTIVE GASTROENTERITIS AND COLITIS, UNSPECIFIED 11/07/2018 Bal Karina W 558.9 OTHER AND UNSPECIFIED NONINFECTIOUS GASTROENTERITIS AND COLITIS 11/07/2018 Bal Karina W K52.9 NONINFECTIVE GASTROENTERITIS AND COLITIS, UNSPECIFIED 01/30/2019 LEISUREOLMAN 041.49 OTHER AND UNSPECIFIED ESCHERICHIA COLI [E. COLI] INFECTION IN CONDITIONS CLASSIFIED ELSEWHERE AND OF UNSPECIFIED SITE 01/30/2019 OLMAN HENDRIX 599.0 URINARY TRACT INFECTION, SITE NOT SPECIFIED 01/30/2019 OLMAN HENDRIX 786.5 CHEST PAIN 01/30/2019 OLMAN HENDRIX B96.20 UNSP ESCHERICHIA COLI THE CAUSE OF DISEASES CLASSD ELSWHR 01/30/2019 LEISURE, LYNIETA W N39.0 URINARY TRACT INFECTION, SITE NOT SPECIFIED 01/30/2019 SIMEON, OLMAN W R07.89 OTHER CHEST PAIN 02/07/2019 ROYA GORDON MD Ot E03.9 HYPOTHYROIDISM, UNSPECIFIED 02/07/2019 ROYA GORDON MD Ot I10 ESSENTIAL (PRIMARY) HYPERTENSION 02/07/2019 ORYA GORDON MD Ot R07.9 CHEST PAIN, UNSPECIFIED 02/07/2019 ROYA GORDON MD Ot R55 SYNCOPE AND COLLAPSE 02/12/2019 ROYA GORDON MD Ot E03.9 HYPOTHYROIDISM, UNSPECIFIED 02/12/2019 ROYA GORDON MD Ot I10 ESSENTIAL (PRIMARY) HYPERTENSION 02/12/2019 ROYA GORDON MD Ot R07.9 CHEST PAIN, UNSPECIFIED 02/12/2019 ROYA GORDON MD Ot R55 SYNCOPE AND COLLAPSE 02/20/2019 Karina Selby W 780.79 OTHER MALAISE AND FATIGUE 02/20/2019 Karina Selby W 787.02 NAUSEA ALONE 02/20/2019 Karina Selby W R11.0 NAUSEA 02/20/2019 Stephanie Selbya W R53.83 OTHER FATIGUE 02/20/2019 Stephanie Selbya W 780.79 OTHER MALAISE AND FATIGUE 02/20/2019 Karina Selby W 787.02 NAUSEA ALONE 02/20/2019 Karina Selby W R11.0 NAUSEA 02/20/2019 Karina Selby W R53.83 OTHER FATIGUE Procedures There is no data. Results Test Result Range Comprehensive Metabolic Panel - 10/13/16 09:50 Albumin 4.1 g/dL 3.6-5.1 ALP 86 U/L 35-130 ALT 39 U/L 6-45 Anion Gap 15 6-14 AST 37 U/L 2-40 BUN 14 mg/dL 5-25 Calcium 9.7 mg/dL 8.3-10.4 Chloride 108 mmol/L 95-114 CO2 22 mEq/L 22-33 Creat 1.12 mg/dL 0.50-1.50 eGFR 46 mL/min/1.73m2 >59 Globulin 3.1 g/dL 2.3-3.5 Glucose 87 mg/dL 70-110 Osmo 289 280-295 Potassium 4.5 mmol/L 3.5-5.3 Sodium 140 mmol/L 134-148 TBil 0.4 mg/dL 0.2-1.2 TP 7.2 g/dL 6.0-8.3 Complete blood count (CBC) with automated white blood cell (WBC) differential - 12/12/16 13:14 Blood leukocytes automated count (number/volume) 9.2 10*3/uL 4.3-11.0 Blood erythrocytes automated count (number/volume) 4.60 10*6/uL 4.35-5.85 Venous blood hemoglobin measurement (mass/volume) 14.0 g/dL 11.5-16.0 Blood hematocrit (volume fraction) 41 % 35-52 Automated erythrocyte mean corpuscular volume 88 [foz_us] 80-99 Automated erythrocyte mean corpuscular hemoglobin (mass per erythrocyte) 30 pg 25-34 Automated erythrocyte mean corpuscular hemoglobin concentration measurement ( mass/volume) 35 g/dL 32-36 Automated erythrocyte distribution width ratio 14.0 % 10.0-14.5 Automated blood platelet count (count/volume) 336 10*3/uL 130-400 Automated blood platelet mean volume measurement 9.4 [foz_us] 7.4-10.4 Automated blood neutrophils/100 leukocytes 46 % 42-75 Automated blood lymphocytes/100 leukocytes 37 % 12-44 Blood monocytes/100 leukocytes 12 % 0-12 Automated blood eosinophils/100 leukocytes 6 % 0-10 Automated blood basophils/100 leukocytes 0 % 0-10 Blood neutrophils automated count (number/volume) 4.2 10*3 1.8-7.8 Blood lymphocytes automated count (number/volume) 3.4 10*3 1.0-4.0 Blood monocytes automated count (number/volume) 1.1 10*3 0.0-1.0 Automated eosinophil count 0.5 10*3/uL 0.0-0.3 Automated blood basophil count (count/volume) 0.0 10*3/uL 0.0-0.1 Serum or plasma amylase measurement (enzymatic activity/volume) - 12/12/16 13: 14 Serum or plasma amylase measurement (enzymatic activity/volume) 68 U /L 25-125 Lipase - 12/12/16 13:14 Lipase 53 U/L 8-78 Thyroid Stimulating Hormone - 12/28/16 11:43 TSH 1.62 mIU/mL 0.32-5.00 Urinalysis - 12/28/16 13:34 Icotest N/A Negative Urine Volume Urine Volume Sufficient (10mL) Urine Yeast No Yeast present Urine-Appearance Clear Clear Urine-Bacteria Negative Urine-Bilirubin Negative Negative Urine-Blood Negative Negative Urine-Color Yellow Colorless-Lt. Yellow Urine-Epithelial Cells 0-5/HPF Urine-Glucose Negative Negative Urine-Ketones Negative Negative Urine-Leukocytes Negative Negative Urine-Nitrite Negative Negative Urine-Other Urine Saved if Culture Needed (48hrs from time of collection) Urine-pH 5.5 5-8.5 Urine-Protein Negative Negative Urine-RBC 2-5/HPF Urine-Specific [place] 1.020 1.000-1.030 Urine-WBC Negative Urobilinogen 0.2 E.U./dL 0.2-1.0 Complete blood count (CBC) with automated white blood cell (WBC) differential - 03/04/17 17:10 Blood leukocytes automated count (number/volume) 16.1 10*3/uL 4.3-11.0 Blood erythrocytes automated count (number/volume) 4.66 10*6/uL 4.35-5.85 Venous blood hemoglobin measurement (mass/volume) 14.1 g/dL 11.5-16.0 Blood hematocrit (volume fraction) 42 % 35-52 Automated erythrocyte mean corpuscular volume 90 [foz_us] 80-99 Automated erythrocyte mean corpuscular hemoglobin (mass per erythrocyte) 30 pg 25-34 Automated erythrocyte mean corpuscular hemoglobin concentration measurement ( mass/volume) 34 g/dL 32-36 Automated erythrocyte distribution width ratio 14.2 % 10.0-14.5 Automated blood platelet count (count/volume) 380 10*3/uL 130-400 Automated blood platelet mean volume measurement 9.6 [foz_us] 7.4-10.4 Automated blood neutrophils/100 leukocytes 61 % 42-75 Automated blood lymphocytes/100 leukocytes 24 % 12-44 Blood monocytes/100 leukocytes 12 % 0-12 Automated blood eosinophils/100 leukocytes 3 % 0-10 Automated blood basophils/100 leukocytes 0 % 0-10 Blood neutrophils automated count (number/volume) 9.7 10*3 1.8-7.8 Blood lymphocytes automated count (number/volume) 3.9 10*3 1.0-4.0 Blood monocytes automated count (number/volume) 2.0 10*3 0.0-1.0 Automated eosinophil count 0.4 10*3/uL 0.0-0.3 Automated blood basophil count (count/volume) 0.1 10*3/uL 0.0-0.1 Comprehensive metabolic panel - 03/04/17 17:10 Serum or plasma sodium measurement (moles/volume) 138 mmol/L 135-145 Serum or plasma potassium measurement (moles/volume) 4.2 mmol/L 3.6-5.0 Serum or plasma chloride measurement (moles/volume) 104 mmol/L 98-107 Carbon dioxide 23 mmol/L 21-32 Serum or plasma anion gap determination (moles/volume) 11 mmol/L 5-14 Serum or plasma urea nitrogen measurement (mass/volume) 19 mg/dL 7-18 Serum or plasma creatinine measurement (mass/volume) 1.65 mg/dL 0.60-1.30 Serum or plasma urea nitrogen/creatinine mass ratio 12 NRG Serum or plasma creatinine measurement with calculation of estimated glomerular filtration rate 29 NRG Serum or plasma glucose measurement (mass/volume) 90 mg/dL 70-105 Serum or plasma calcium measurement (mass/volume) 9.6 mg/dL 8.5-10.1 Serum or plasma total bilirubin measurement (mass/volume) 0.5 mg/dL 0.1-1.0 Serum or plasma alkaline phosphatase measurement (enzymatic activity/volume) 79 U/L 40-136 Serum or plasma aspartate aminotransferase measurement (enzymatic activity/ volume) 55 U/L 5-34 Serum or plasma alanine aminotransferase measurement (enzymatic activity/volume ) 39 U/L 0-55 Serum or plasma protein measurement (mass/volume) 7.4 g/dL 6.4-8.2 Serum or plasma albumin measurement (mass/volume) 3.8 g/dL 3.2-4.5 Serum or plasma C reactive protein measurement (mass/volume) - 03/04/17 17:10 Serum or plasma C reactive protein measurement (mass/volume) 1.01 mg /dL 0.00-0.50 Blood manual differential performed detection - 03/04/17 17:10 Blood monocytes/100 leukocytes 16 % NRG Manual blood segmented neutrophils/100 leukocytes 56 % NRG Blood band neutrophils/100 leukocytes 2 % NRG Manual blood lymphocytes/100 leukocytes 24 % NRG Manual eosinophils/100 leukocytes in nose 2 % NRG Blood erythrocyte morphology finding identification NORMAL NRG Blood toxic granules detection by light microscopy 1+ NRG Erythrocyte sedimentation rate by westergren method - 03/04/17 17:10 Erythrocyte sedimentation rate by westergren method 48 mm 0-30 PT panel in platelet poor plasma by coagulation assay - 03/04/17 17:10 Prothrombin time (PT) in platelet poor plasma by coagulation assay 13.3 s 12.2-14.7 INR in platelet poor plasma or blood by coagulation assay 1.0 0.8-1.4 Activated partial thromboplastin time (aPTT) in platelet poor plasma bycoagulation assay - 03/04/17 17:10 Activated partial thromboplastin time (aPTT) in platelet poor plasma bycoagulation assay 26 s 24-35 Complete urinalysis with reflex to culture - 08/14/17 10:15 Urine color determination YELLOW NRG Urine clarity determination CLEAR NRG Urine pH measurement by test strip 5 5-9 Specific gravity of urine by test strip 1.010 1.016- 1.022 Urine protein assay by test strip, semi-quantitative NEGATIVE NEGATIVE Urine glucose detection by automated test strip NEGATIVE NEGATIVE Erythrocytes detection in urine sediment by light microscopy 3+ NEGATIVE Urine ketones detection by automated test strip NEGATIVE NEGATIVE Urine nitrite detection by test strip NEGATIVE NEGATIVE Urine total bilirubin detection by test strip NEGATIVE NEGATIVE Urine urobilinogen measurement by automated test strip (mass/volume) NORMAL NORMAL Urine leukocyte esterase detection by dipstick 3+ NEGATIVE Automated urine sediment erythrocyte count by microscopy (number/high power field) NONE NRG Automated urine sediment leukocyte count by microscopy (number/high power field ) > [HPF] NRG Bacteria detection in urine sediment by light microscopy FEW NRG Crystals detection in urine sediment by light microscopy NONE NRG Casts detection in urine sediment by light microscopy NONE NRG Mucus detection in urine sediment by light microscopy NEGATIVE NRG Complete urinalysis with reflex to culture YES NRG Bacterial urine culture - 08/14/17 10:15 Bacterial urine culture [id number] NRG COLONY COUNT >100,000/ML NRG FTX;REPORTABLE SENSITIVITY REPORTED AT 0738, 08-16-17 NRG Bacterial susceptibility panel - 08/14/17 10:15 Gentamicin susceptibility test by minimum inhibitory concentration < = NRG Trimethoprim/sulfamethoxazole susceptibility test by minimum inhibitoryconcentration >= NRG Ampicillin susceptibility test by minimum inhibitory concentration 16 NRG Tobramycin susceptibility test by minimum inhibitory concentration < = NRG Cefazolin susceptibility test by minimum inhibitory concentration < = NRG Ceftriaxone susceptibility test by minimum inhibitory concentration <= NRG Ampicillin/sulbactam susceptibility test by minimum inhibitory concentration I NRG Piperacillin/tazobactam susceptibility test by minimum inhibitory concentration <= NRG Ciprofloxacin susceptibility test by minimum inhibitory concentration >= NRG Meropenem susceptibility test by minimum inhibitory concentration < = NRG Nitrofurantoin susceptibility test by minimum inhibitory concentration <= NRG Aztreonam susceptibility test by minimum inhibitory concentration < = NRG Extended spectrum beta lactamase (ESBL) producing bacteria susceptibility test by minimum inhibitory concentration - NRG Complete blood count (CBC) with automated white blood cell (WBC) differential - 08/14/17 10:30 Blood leukocytes automated count (number/volume) 13.8 10*3/uL 4.3-11.0 Blood erythrocytes automated count (number/volume) 4.53 10*6/uL 4.35-5.85 Venous blood hemoglobin measurement (mass/volume) 13.3 g/dL 11.5-16.0 Blood hematocrit (volume fraction) 40 % 35-52 Automated erythrocyte mean corpuscular volume 88 [foz_us] 80-99 Automated erythrocyte mean corpuscular hemoglobin (mass per erythrocyte) 29 pg 25-34 Automated erythrocyte mean corpuscular hemoglobin concentration measurement ( mass/volume) 34 g/dL 32-36 Automated erythrocyte distribution width ratio 14.2 % 10.0-14.5 Automated blood platelet count (count/volume) 430 10*3/uL 130-400 Automated blood platelet mean volume measurement 9.5 [foz_us] 7.4-10.4 Automated blood neutrophils/100 leukocytes 59 % 42-75 Automated blood lymphocytes/100 leukocytes 24 % 12-44 Blood monocytes/100 leukocytes 13 % 0-12 Automated blood eosinophils/100 leukocytes 5 % 0-10 Automated blood basophils/100 leukocytes 0 % 0-10 Blood neutrophils automated count (number/volume) 8.1 10*3 1.8-7.8 Blood lymphocytes automated count (number/volume) 3.3 10*3 1.0-4.0 Blood monocytes automated count (number/volume) 1.7 10*3 0.0-1.0 Automated eosinophil count 0.6 10*3/uL 0.0-0.3 Automated blood basophil count (count/volume) 0.1 10*3/uL 0.0-0.1 Comprehensive metabolic panel - 08/14/17 10:30 Serum or plasma sodium measurement (moles/volume) 137 mmol/L 135-145 Serum or plasma potassium measurement (moles/volume) 3.9 mmol/L 3.6-5.0 Serum or plasma chloride measurement (moles/volume) 106 mmol/L 98-107 Carbon dioxide 20 mmol/L 21-32 Serum or plasma anion gap determination (moles/volume) 11 mmol/L 5-14 Serum or plasma urea nitrogen measurement (mass/volume) 15 mg/dL 7-18 Serum or plasma creatinine measurement (mass/volume) 1.35 mg/dL 0.60-1.30 Serum or plasma urea nitrogen/creatinine mass ratio 11 NRG Serum or plasma creatinine measurement with calculation of estimated glomerular filtration rate 37 NRG Serum or plasma glucose measurement (mass/volume) 96 mg/dL 70-105 Serum or plasma calcium measurement (mass/volume) 10.0 mg/dL 8.5-10.1 Serum or plasma total bilirubin measurement (mass/volume) 0.6 mg/dL 0.1-1.0 Serum or plasma alkaline phosphatase measurement (enzymatic activity/volume) 86 U/L 40-136 Serum or plasma aspartate aminotransferase measurement (enzymatic activity/ volume) 23 U/L 5-34 Serum or plasma alanine aminotransferase measurement (enzymatic activity/volume ) 17 U/L 0-55 Serum or plasma protein measurement (mass/volume) 8.1 g/dL 6.4-8.2 Serum or plasma albumin measurement (mass/volume) 3.8 g/dL 3.2-4.5 Thyroid Stimulating Hormone - 08/24/17 12:08 TSH 0.29 mIU/mL 0.32-5.00 Urine Culture - 08/24/17 12:08 PRELIM CULTURE RESULTS No Growth 24 hours FINAL CULTURE RESULTS No Growth 48 hours MEDIA PLATED Setup at 12:49 on 08/24/2017 CULTURE SOURCE clean catch Thyroid Stimulating Hormone - 03/29/18 14:46 TSH 2.52 mIU/mL 0.32-5.00 BMP - 04/02/18 11:49 Anion Gap 15 6-14 BUN 19 mg/dL 5-25 Calcium 10.2 mg/dL 8.3-10.4 Chloride 102 mmol/L 95-114 CO2 21 mEq/L 22-33 Creat 1.37 mg/dL 0.50-1.50 eGFR 36 mL/min/1.73m2 >59 Glucose 100 mg/dL 70-110 Osmo 279 280-295 Potassium 4.3 mmol/L 3.5-5.3 Sodium 134 mmol/L 134-148 Thyroid Stimulating Hormone - 11/07/18 10:32 TSH 2.48 mIU/mL 0.32-5.00 Urine Culture - 11/07/18 10:32 PRELIM CULTURE RESULTS 20,000-50,000 Gram Negative Lactose Hull Builder VINAY / ID to Follow CULTURE SOURCE CC Sensi - 11/07/18 10:32 FINAL CULTURE RESULTS Escherichia coli (Isolate 1) Ampicillin/Sulbactam >16/8 Ampicillin >16 Amoxicillin/K Clavulanate 16/8 Ceftriaxone <=8 Ciprofloxacin >2 Nitrofurantoin <=32 Gentamicin <=4 Levofloxacin >4 Trimethoprim/ Sulfamethoxazole >2/38 Tetracycline <=4 Amikacin <=16 Aztreonam <=8 Ceftazidime <=1 Ceftazidime/K Clavulanate 2 Cephalothin 16 Cefotaxime <=2 Cefotaxime/K Clavulanate <=0.5 Cefoxitin <=8 Cefazolin <=8 Cefepime <=8 Cefuroxime 8 Ertapenem <=1 Imipenem <=4 Meropenem <=4 Piperacillin/Tazobactam <=16 Piperacillin >64 Tigecycline <=2 Tobramycin <=4 CBC with Auto Diff - 01/16/19 10:17 Baso% 0.40 % 0.00-2.50 Eos 0.6 K/uL 0.0-0.7 Eos% 5.7 % 0.0-7.0 Hct 40.9 % 36.0-46.0 Hgb 13.9 g/dL 13.0-15.0 Lym 4.03 K/uL 0.60-3.40 Lym% 35.8 % 10.0-50.0 MCH 30.3 pg 27.0-31.0 MCHC 34.0 g/dL 32.0-36.0 MCV 89.3 fL 80.0-97.0 [place]% 10.9 % 0.0-12.0 MPV 9.4 fL 7.4-10.0 Royce% 47.2 % 37.0-80.0 Plt 417 K/uL 150-400 RBC 4.58 M/uL 3.60-5.00 RDW 13.3 % 11.6-14.8 WBC 11.25 K/uL 5.00-10.00 Royce 5.30 K/uL 2.00-6.90 [place] 1.2 K/uL 0.0-0.9 Baso 0.1 K/uL 0.0-0.2 Troponin I - 01/30/19 11:48 Troponin <0.020 ng/mL 0.0-0.4 Encounters ACCT No. Visit Date/Time Discharge Status Pt. Type Provider Facility Loc./Unit Complaint [id number] 02/20/2019 09:56:00 02/20/2019 23:59:00 DIS Outpatient Karina Selby [id number] 01/30/2019 09:31:00 01/30/2019 13:05:00 DIS [facility] [id number] 01/16/2019 10:14:00 01/16/2019 23:59:00 DIS Outpatient Karina Selby [id number] 11/07/2018 10:21:00 11/07/2018 23:59:00 DIS Outpatient Karina Selby [id number] 06/28/2018 15:17:00 06/28/2018 23:59:00 DIS Outpatient Karina Selby [id number] 04/02/2018 11:35:00 04/02/2018 23:59:00 DIS Outpatient Karina Selby [id number] 03/29/2018 14:41:00 03/29/2018 23:59:00 DIS Outpatient Karina Selby [id number] 01/11/2018 09:35:00 01/11/2018 23:59:00 DIS Outpatient Karina Selby [id number] 10/17/2017 08:44:00 10/17/2017 23:59:00 DIS Outpatient BARBY ORTIZ [id number] 08/24/2017 11:58:00 08/24/2017 23:59:00 DIS Outpatient Karina Selby [id number] 07/06/2017 10:37:00 07/06/2017 23:59:00 DIS Outpatient BARBY ORTIZ [id number] 03/14/2017 12:06:00 03/14/2017 23:59:00 DIS Outpatient Karina Selby [id number] 12/28/2016 11:38:00 12/28/2016 23:59:00 DIS Outpatient Karina Selby [id number] 10/13/2016 09:46:00 10/13/2016 23:59:00 DIS Outpatient Elmira Damon [id number] 01/30/2019 09:45:34 Document Registration [id number] 02/12/2019 10:50:00 02/12/2019 23:59:59 CLS Outpatient ROYA GORDON MD [facility] CARD HTN, SYNCOPE, CHEST PAIN IN ADULT [id number] 02/06/2019 10:44:00 02/06/2019 23:59:59 CLS Outpatient ROYA GORDON MD [facility] CARD HTN, SYNCOPE, CHEST PAIN IN ADULT [id number] 04/10/2018 14:51:00 04/24/2018 15:16:00 DIS Outpatient BARBY ORTIZ MD [facility] REHAB SCIATICA [id number] 03/14/2018 13:36:00 03/17/2018 00:01:00 DIS Outpatient BARBY ORTIZ MD [facility] REHAB [place]AT[place] [id number] 08/14/2017 09:57:00 08/14/2017 12:27:00 DIS Emergency KATIANA CHANDLER MD [facility] ER LOWER ABD PAIN [id number] 03/04/2017 15:16:00 03/04/2017 18:42:00 DIS Emergency LALO REYNA [facility] ER L ARM REDNESS/ DISCOLORATION/NAUSEA/HEADACHE [id number] 12/12/2016 12:23:00 12/12/2016 13:49:00 DIS Emergency GURDEEP RESENDEZ APRN [facility] ER NAUSEA [id number] 03/06/2016 14:56:00 03/06/2016 23:59:59 CLS Preadmit GARCÍA RANDLE [facility] ONC [id number] 02/17/2015 18:47:00 02/17/2015 21:35:00 DIS Emergency GIL KYLE DO Via [facility] ER ABD, R SIDE PAIN,NAUSEA [id number] 02/02/2015 15:21:00 02/02/2015 15:21:00 SUBHASH Dumont MD [facility] LAB [id number] 06/19/2018 17:02:00 Document Registration [id number] 05/21/2012 13:00:00 Document Registration [id number] 01/05/2012 11:22:00 Document Registration [id number] 11/05/2011 07:19:00 Document Registration
[2019-03-03] MEDS ORDERED: LACTATED RINGERS 1,000 ML IV ONE ×2 (19:27→21:06)
[2019-03-03] MEDS ORDERED: ONDANSETRON 4 MG/2 ML (SDV) Z0FRAN IVP ONE (19:30)
--- NOTE | 2019-03-03 19:56 | ED GI ---
General Chief Complaint: Abdominal/GI Problems Stated Complaint: NAUSEA/UNABLE TO VOMIT Nursing Triage Note: Pt states Nauseated and unable to vomit started at 1700 Sepsis Screen: No Definite Risk Source of Information: Patient History of Present Illness Date Seen by Provider: March 03, 2019 Time Seen by Provider: 19:25 Initial Comments PT ARRIVES VIA POV PT STATES SHE HAS NOT HAD ANY ENERGY FOR THE LAST FEW DAYS AROUND 1700 TONIGHT, AFTER DRIVING HOME FROM [facility], SHE BEGAN TO HAVE NAUSEA STATES SHE CANNOT VOMIT DUE TO PRIOR SURGERY FOR ACID REFLUX STATES SHE HAS SOME RIGHT MID AND LOWER ABDOMINAL PAIN NO FEVER NO URINARY SYMPTOMS PT STATES THAT HER STOMACH HAS BEEN GIVING HER ALOT OF TROUBLE LATELY AND HER STOOLS HAVE BEEN LOOSE "FOR AWHILE" STATES SHE LAST ATE AROUND NOON TODAY STATES SHE IS SUPPOSED TO BE EATING EVERY 2 HOURS, BUT HAS NOT FELT LIKE IT TODAY HAS BEEN DRINKING SOME FLUIDS TODAY PT STATES SHE HAS RECENTLY HAD SOME CHANGES IN HER BLOOD PRESSURE MEDICATION WAS ON TOPROL, BUT IT WAS STOPPED BY A FEW DAYS AGO BECAUSE IT WAS MAKING HER TOO SLEEPY WAS SUPPOSED TO HAVE CALLED IN A NEW MEDICATION FOR BLOOD PRESSURE, BUT HAS NOT BEEN CALLED IN YET, PER PT. NO CHEST PAIN NO SHORTNESS OF BREATH NO PALPITATIONS PCP: DR. AKERS KETTLE SKIMMER: DR. GORDON Allergies and Home Medications Allergies Coded Allergies: Cephalexin Monohydrate (Verified Allergy, Unknown, 03/04/17) Penicillins (Verified Allergy, Unknown, 03/04/17) Home Medications Budesonide/Formoterol Fumarate 10.2 Gm Hfa.aer.ad, 2 PUFF IH BID, (Reported) Colestipol HCl 1 Gm Tablet, 1 GM PO BID, (Reported) Ergocalciferol 50,000 Unit Capsule, 50,000 UNIT PO WEEKLY, (Reported) Levothyroxine Sodium 150 Mcg Tablet, 0.5 EACH PO DAILY, (Reported) Nitrofurantoin Monohyd/M-Cryst 100 Mg Capsule, 100 MG PO BID Prescribed by: WILLIS BROTHERS on 03/03/192127 Omeprazole 20 Mg Capsule.dr, 1 CAP PO DAILY, (Reported) Ondansetron 4 Mg Tab.rapdis, 4 MG PO Q4H Prescribed by: WILLIS BROTHERS on 03/03/192127 [Micardis] , ?MG DAILY, (Reported) [Mytab Chew] , 1-2 QID, (Reported) Patient Home Medication List Home Medication List Reviewed: Yes Review of Systems Review of Systems Constitutional: see HPI, malaise EENTM: No Symptoms Reported Respiratory: No Symptoms Reported; Denies Cough, Denies Shortness of Air Cardiovascular: No Symptoms Reported; Denies Chest Pain, Denies Edema, Denies Lightheadedness, Denies Palpitations, Denies Syncope Gastrointestinal: See HPI, Abdominal Pain, Diarrhea, Nausea, Poor Appetite; Denies Poor Fluid Intake, Denies Vomiting Genitourinary: No Symptoms Reported Musculoskeletal: no symptoms reported; No back pain Skin: no symptoms reported Psychiatric/Neurological: No Symptoms Reported; Denies Headache, Denies Numbness, Denies Paresthesia Endocrine: No Symptoms Reported Hematologic/Lymphatic: No Symptoms Reported Past Sfalqzz-Thntgw-Xqhhev Hx Patient Social History Alcohol Use: Denies Use Recreational Drug Use: No Smoking Status: Never a Smoker 2nd Hand Smoke Exposure: No Recent Foreign Travel: No Contact w/Someone Who Travel: No Recent Infectious Disease Expo: No Recent Hopitalizations: No Immunizations Up To Date Tetanus Booster (TDap): More than 5yrs Date of Influenza Vaccine: Jul 31, 2016 Past Medical History Surgeries: Yes (HERVE FUNDOPLICATION; 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 RESECTION ? AND STENT ? 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 CHRONIC ABDOMINAL PAIN ) Gastroesophageal Reflux, Hiatal Hernia, Gall Bladder Disease Musculoskeletal: No Endocrine: Yes Hypothyroidsim HEENT: No Cancer: No Psychosocial: No Integumentary: No Blood Disorders: No Family Medical History No Pertinent Family Hx Physical Exam Vital Signs Vital Signs - First Documented 03/03/19 19:19 Temp 97.8 Pulse 66 Resp 18 B/P (MAP) 191/82 (118) Pulse Ox 97 O2 Delivery Room Air Capillary Refill : Less Than 3 Seconds Height/Weight/BMI Height: 5'1.00" Weight: 143lbs. 0.0oz. [id number]; 26.2 BMI Method:Stated General Appearance: WD/WN, no apparent distress HEENT: PERRL/EOMI Neck: normal inspection Respiratory: normal breath sounds, no respiratory distress, no accessory muscle use Cardiovascular: regular rate, rhythm, no murmur Gastrointestinal: non tender, soft, no organomegaly, no pulsatile mass, abnormal bowel sounds (HYPERACTIVE BOWEL SOUNDS), distended (BUT SOFT) Extremities: normal inspection, no pedal edema, no calf tenderness, normal capillary refill Back: no CVA tenderness Neurologic/Psychiatric: defence force member other ranks II-XII nml as tested, no motor/sensory deficits, alert, normal mood/affect, oriented x 3 Skin: normal color, warm/dry; No rash Progress/Results/Core Measures Results/Orders Lab Results Laboratory Tests Test 03/03/19 19:50 03/03/19 20:01 Range/Units Urine Color YELLOW Urine Clarity SL CLOUDY Urine pH 5 5-9 Urine Specific [place] 1.020 1.016-1.022 Urine Protein NEGATIVE NEGATIVE Urine Glucose (UA) NEGATIVE NEGATIVE Urine Ketones NEGATIVE NEGATIVE Urine Nitrite NEGATIVE NEGATIVE Urine Bilirubin NEGATIVE NEGATIVE Urine Urobilinogen NORMAL NORMAL MG/DL Urine Leukocyte Esterase 2+ H NEGATIVE Urine RBC (Auto) 2+ H NEGATIVE Urine RBC 0-2 /HPF Urine WBC 5-10 H /HPF Urine Crystals NONE /LPF Urine Bacteria TRACE /HPF Urine Casts NONE /LPF Urine Mucus NEGATIVE /LPF Urine Culture Indicated YES White Blood Count 19.0 H 4.3-11.0 10^3/uL Red Blood Count 4.70 4.35-5.85 10^6/uL Hemoglobin 13.9 11.5-16.0 G/DL Hematocrit 41 35-52 % Mean Corpuscular Volume 88 80-99 FL Mean Corpuscular Hemoglobin 30 25-34 PG Mean Corpuscular Hemoglobin Concent 34 32-36 G/DL Red Cell Distribution Width 14.4 10.0-14.5 % Platelet Count 401 H 130-400 10^3/uL Mean Platelet Volume 9.6 7.4-10.4 FL Neutrophils (%) (Auto) 71 42-75 % Lymphocytes (%) (Auto) 16 12-44 % Monocytes (%) (Auto) 11 0-12 % Eosinophils (%) (Auto) 2 0-10 % Basophils (%) (Auto) 0 0-10 % Neutrophils # (Auto) 13.6 H 1.8-7.8 X 10^3 Lymphocytes # (Auto) 3.0 1.0-4.0 X 10^3 Monocytes # (Auto) 2.0 H 0.0-1.0 X 10^3 Eosinophils # (Auto) 0.4 H 0.0-0.3 10^3/uL Basophils # (Auto) 0.0 0.0-0.1 10^3/uL Neutrophils % (Manual) 70 % Lymphocytes % (Manual) 20 % Monocytes % (Manual) 7 % Eosinophils % (Manual) 3 % Basophils % (Manual) 0 % Band Neutrophils 0 % Blood Morphology Comment NORMAL Sodium Level 137 135-145 MMOL/L Potassium Level 4.3 3.6-5.0 MMOL/L Chloride Level 112 H 98-107 MMOL/L Carbon Dioxide Level 13 L 21-32 MMOL/L Anion Gap 12 5-14 MMOL/L Blood Urea Nitrogen 43 H 7-18 MG/DL Creatinine 1.26 0.60-1.30 MG/DL Estimat Glomerular Filtration Rate 40 BUN/Creatinine Ratio 34 Glucose Level 113 H 70-105 MG/DL Calcium Level 9.7 8.5-10.1 MG/DL Corrected Calcium 9.7 8.5-10.1 MG/DL Magnesium Level 2.0 1.8-2.4 MG/DL Total Bilirubin 0.3 0.1-1.0 MG/DL Aspartate Amino Transf (AST/SGOT) 23 5-34 U/L Alanine Aminotransferase (ALT/SGPT) 20 0-55 U/L Alkaline Phosphatase 68 40-136 U/L Total Protein 7.8 6.4-8.2 GM/DL Albumin 4.0 3.2-4.5 GM/DL Amylase Level 92 25-125 U/L Lipase 61 8-78 U/L My Orders Orders - WILLIS BROTHERS DO Ed Iv/Invasive Line Start (03/03/19 19:27) Ekg Tracing (03/03/19 19:27) Monitor-Rhythm Ecg Trace Only (03/03/19 19:) Amylase (03/03/19 19:27) Cbc With Automated Diff (03/03/19 19:) Comprehensive Metabolic Panel (5/6/19 19:27) Lipase (03/03/19 19:27) Magnesium (03/03/19 19:27) Ua Culture If Indicated (03/03/19 19:27) Ed Iv/Invasive Line Start (03/03/19 19:27) Lactated Ringers (Lr 1000 Ml Iv Solution (03/03/19 19:27) Ondansetron Injection (Zofran Injectio (03/03/19 19:30) Manual Differential (03/03/19 20:01) Urine Culture (03/03/19 19:50) Ct Abd/Pelvis Wo(Kidney Stone) (03/03/19 20:38) Acute Abd Series (03/03/19 20:38) Levofloxacin 250 Mg/50 Ml Ivpb (Levaquin (03/03/19 21:15) Ed Iv/Invasive Line Start (03/03/19 21:06) Lactated Ringers (Lr 1000 Ml Iv Solution (03/03/19 21:06) Nitrofurantoin Capsule,Macro (Macrobid C (03/03/19 21:15) Rx-Ondansetron Po (Rx-Zofran Po) (03/03/19 21:10) Medications Given in ED Current Medications Medications Dose Ordered Sig/Hitesh Route Start Time Stop Time Status Last Admin Dose Admin Lactated Ringer's 1,000 ml @ 0 mls/hr Q0M ONCE IV 03/03/19 19:27 03/03/19 19:32 DC 03/03/19 20:09 0 MLS/HR Nitrofurantoin Macrocrystals 100 mg ONCE ONCE PO 03/03/19 21:15 03/03/19 21:16 DC 03/03/19 21:15 100 MG Ondansetron HCl 4 mg ONCE ONCE IVP 03/03/19 19:30 03/03/19 19:32 DC 03/03/19 20:09 4 MG Vital Signs/I&O 03/03/19 03/03/19 19:19 21:42 Temp 97.8 97.0 Pulse 66 69 Resp 18 18 B/P (MAP) 191/82 (118) 163/65 (97) Pulse Ox 97 100 O2 Delivery Room Air Room Air Blood Pressure Mean: 118 Progress Progress Note : Progress Note NAUSEA RESOLVED PT TOLERATING LIQUIDS WITHOUT DIFFICULTY Initial ECG Impression Date: March 03, 2019 Initial ECG Impression Time: 20:07 Initial ECG Rate: 59 Initial ECG Rhythm: Normal Sinus Initial ECG Impression: Normal Departure Impression Primary Impression: Urinary tract infection Additional Impressions: Nausea Mild dehydration Disposition: 01 HOME, SELF-CARE Condition: Improved Departure-Patient Inst. Referrals: WILLIS AKERS MD (PCP/Family) Primary Care Physician Patient Instructions: Nausea and Vomiting, Adult (DC), Urinary Tract Infection , Adult (DC), Dehydration, Adult (DC) Add. Discharge Instructions: INCREASE YOUR FLUID INTAKE--WATER, BROTH, JELLO, GATORADE DRINK ENOUGH SO YOUR ARE URINATING EVERY 2-3 HOURS WHILE AWAKE FOLLOW UP WITH YOUR DR IN 2-3 DAYS FOR FURTHER CARE All discharge instructions reviewed with patient and/or family. Voiced understanding. Scripts Ondansetron (Ondansetron Odt) 4 Mg Tab.rapdis 4 MG PO Q4H for Nausea/Vomiting, #10 TAB Prov: WILLIS BROTHERS DO 03/03/19 Nitrofurantoin Monohyd/M-Cryst (Macrobid 100 mg Capsule) 100 Mg Capsule 100 MG PO BID, #20 CAP Prov: WILLIS BROTHERS DO 03/03/19 WILLIS BROTHERS DO March 03, 2019 19:56
[2019-03-03 20:12] LABS: BASOPHILS % (AUTO) 0 % (0-10); EOSINOPHILS # (AUTO) 0.4 10^3/uL (0.0-0.3); EOSINOPHILS % (AUTO) 2 % (0-10); HEMATOCRIT 41 % (35-52); HEMOGLOBIN 13.9 G/DL (11.5-16.0); LYMPHOCYTES % (AUTO) 16 % (12-44); MEAN CORPUSCULAR HEMOGLOBIN 30 PG (25-34); MEAN CORPUSCULAR HGB CONC 34 G/DL (32-36); MEAN CORPUSCULAR VOLUME 88 FL (80-99); MEAN PLATELET VOLUME 9.6 FL (7.4-10.4); MONOCYTES % (AUTO) 11 % (0-12); NEUTROPHILS # (AUTO) 13.6 X 10^3 (1.8-7.8); NEUTROPHILS % (AUTO) 71 % (42-75); PLATELET COUNT 401 10^3/uL (130-400); RED CELL DISTRIBUTION WIDTH 14.4 % (10.0-14.5)
[2019-03-03 20:15] LABS: BILIRUBIN,URINE NEGATIVE (NEGATIVE); GLUCOSE, URINE (UA) NEGATIVE (NEGATIVE); KETONES,URINE NEGATIVE (NEGATIVE); LEUKOCYTE ESTERASE ,URINE 2+ (NEGATIVE); NITRITE,URINE NEGATIVE (NEGATIVE); PH,URINE 5 (5-9); PROTEIN,URINE NEGATIVE (NEGATIVE); UROBILINOGEN,URINE NORMAL (NORMAL)
[2019-03-03 20:16] LABS: BACTERIA,URINE TRACE /HPF; CLARITY,URINE SL CLOUDY; COLOR,URINE YELLOW; RBC,URINE 0-2 /HPF
[2019-03-03 20:33] LABS: BILIRUBIN,TOTAL 0.3 MG/DL (0.1-1.0); CALCIUM 9.7 MG/DL (8.5-10.1); CREATININE SERUM 1.26 MG/DL (0.60-1.30); POTASSIUM 4.3 MMOL/L (3.6-5.0); TOTAL PROTEIN 7.8 GM/DL (6.4-8.2)
[2019-03-03 20:38] LABS: BAND NEUTROPHILS 0 %; BASOPHILS % (MANUAL) 0 %; EOSINOPHILS % (MANUAL) 3 %; LYMPHOCYTES % (MANUAL) 20 %; MONOCYTES % (MANUAL) 7 %; NEUTROPHILS % (MANUAL) 70 %
[2019-03-03 20:39] LABS: RBC MORPH NORMAL
--- NOTE | 2019-03-03 21:03 | Diagnostic Imaging Report ---
PROCEDURE: CT urinary tract, rule out kidney stone. TECHNIQUE: Multiple contiguous axial images were obtained through the abdomen and pelvis without the use of intravenous contrast. Auto Exposure Controls were utilized during the CT exam to meet ALARA standards for radiation dose reduction. INDICATION: Right flank pain and nausea. COMPARISON is made to study of 02/17/2015. FINDINGS: Unenhanced images of the liver are unremarkable. Gallbladder is surgically absent. There are multiple nodules in the left upper quadrant which may represent splenosis without dominant standing rock spleen identified. There is no evidence of pancreatic, adrenal gland or renal abnormality. There may be mild right hydronephrosis however there is no evidence of renal or ureteric calculus. No free fluid is seen in the abdomen or pelvis. There is moderate aortoiliac atherosclerotic calcification. No pathologic adenopathy is identified. IMPRESSION: Stable CT scan of the abdomen and pelvis without evidence of urinary tract calculus or obstruction. Dictated by: Dictated on workstation # [id number]
[2019-03-03] MEDS ORDERED: RX-ONDANSETRON 4 MG ODT (ZOFRAN) PPK #4 PO STA (21:10)
[2019-03-03] MEDS ORDERED: LEVOFLOXACIN 250 MG/50 ML IVPB 50 ML IV ONE (21:15)
[2019-03-03] MEDS ORDERED: NITROFURANTOIN 100 MG (MACROBID) CAPSULE PO ONE (21:15)
[2019-03-03] MEDS ORDERED: ONDA4TAB11 PO (21:28)
[2019-03-03] MEDS ORDERED: NITR-65 PO (21:28)
--- NOTE | 2019-03-03 21:38 | Diagnostic Imaging Report ---
INDICATION: Nausea and right flank pain Supine and upright views of the abdomen are obtained with single view of the chest. The lungs are clear and well expanded. There is gaseous distention of the stomach with gaseous distention of small and large bowel, diffusely. There is no evidence of transition point to indicate obstruction. There are scattered air-fluid levels involving primarily the colon. No pathologic abdominal calcification is seen. IMPRESSION: Nonspecific bowel gas pattern may reflect ileus. Air-fluid levels in the colon would also suggest liquid stool and possible diarrheal state. Dictated by: Dictated on workstation # [id number]
[2019-03-03 21:42] VITALS: BP 163/65
== END 2019-03-03 21:44 | disposition home or self-care (01) ==
LOC: EDUNIT# 19:11 → ER 19:12
DX: N39.0 Urinary tract infection, site not specified (principal); E86.0 Dehydration; K21.9 Gastro-esophageal reflux disease without esophagitis; I25.10 Atherosclerotic heart disease of native coronary artery without angina pectoris; I10 Essential (primary) hypertension; E03.9 Hypothyroidism, unspecified; Z87.19 Personal history of other diseases of the digestive system; Z87.442 Personal history of urinary calculi; Z88.1 Allergy status to other antibiotic agents; Z88.0 Allergy status to penicillin; Z90.81 Acquired absence of spleen; Z90.49 Acquired absence of other specified parts of digestive tract; Z95.9 Presence of cardiac and vascular implant and graft, unspecified; Z90.89 Acquired absence of other organs; Z98.890 Other specified postprocedural states
CPT/HCPCS: 36415; 74022; 74176; 80053; 81000; 82150; 83690; 83735; 85007; 85027; 87088; 93005; 93041

== ENCOUNTER 2019-03-16 10:18 | Emergency (ER) | payer MEDICARE, OTHER ==
[~2019-03-16] VITALS: Ht 154.9 cm; Wt 64.0 kg
[~2019-03-16 10:18] MED LIST changes: +NITR-65 PO; +ONDA4TAB11 PO
--- NOTE | 2019-03-16 10:18 | NUR ---
PT ARRIVAL PER [facility]. PT WITH SEVERE ABD PAIN WITH C/O N/V. PT REC'D ZOFRAN 4 MG AND FENTANYL 25 MCG IN ROUTE PER MICT/EMS SERVICE. PT IS MAKING MANY AUDIBLE BREAHTING SOUNDS ALONG WITH MOANING AND ANXIOUSNESS UPON ARRIVING. PLACED ON MONITORS. PT HX PROMARILY FROM DGT ARRIVING TO ROOM. PT JUST RELEASED FROM [facility] ON SUNDAY. PT HAS BEEN AT [facility] THIS PAST WEEK WITH HAVING BEEN DRIVEN TO THEIR E.R. BY FAMILY. PT HAD 2 CARDIAC STENTS ON SUNDAY THEN AN ENDOSCOPY EXAM ON SUNDAY. DGT BRINGS THE ENTIRE [facility] DISCHARGE INSTRUCTIONS HERE INCLUDING EGD PICTURES. PT IS CALMING DOWN SOME AFTER THE FAMILY HAD JOINED HER IN THE ROOM.
--- NOTE | 2019-03-16 10:39 | ED General ---
General Stated Complaint: NAUSEA,VOMITING,ABD PAIN Source of Information: Patient History of Present Illness Date Seen by Provider: March 16, 2019 Time Seen by Provider: 10:34 Initial Comments Patient is an 89-year-old female who presents to the emergency department today complaining of upper abdominal pain. The patient has known history of esophagitis. She was recently admitted at [facility] where she underwent upper endoscopy. She also had cardiac catheterization via both the right groin and right wrist while she was there. She had 2 stents placed. The patient was discharged from that facility 2 days ago. Since discharge, the patient has had difficulty taking her morning medications. She has upper abdominal pain each morning when taking her medications. This was also happening during her hospitalization. Today, she took her medications as directed and did have onset of pain in the abdomen. She states the pain became too severe so she called EMS. No fever or chills since discharge. No vomiting although she has had some intermittent nausea. Denies chest pain. No shortness of breath. 12:11: Patient now has some improvement in pain and nausea although she does continue to have nausea that is more mild. Overall she is improved. Labs are reviewed. Her white blood cell count mildly elevated but not significantly. Her troponin is 177. by the lab standard here, this should be less than 10. I spoke to the patient's primary riveter hand, Dr. Calvin regarding the patient's elevated troponin. Troponin can be elevated after stent placement and he recommended to check CPK. Unfortunately, we cannot do this lab study at this ER. I discussed this issue with the family who did request transfer back to [facility]. Allergies and Home Medications Allergies Coded Allergies: Cephalexin Monohydrate (Verified Allergy, Unknown, 03/04/17) Penicillins (Verified Allergy, Unknown, 03/04/17) Home Medications Budesonide/Formoterol Fumarate 10.2 Gm Hfa.aer.ad, 2 PUFF IH BID, (Reported) Colestipol HCl 1 Gm Tablet, 1 GM PO BID, (Reported) Ergocalciferol 50,000 Unit Capsule, 50,000 UNIT PO WEEKLY, (Reported) Levothyroxine Sodium 150 Mcg Tablet, 0.5 EACH PO DAILY, (Reported) Nitrofurantoin Monohyd/M-Cryst 100 Mg Capsule, 100 MG PO BID Prescribed by: WILLIS BROTHERS on 03/03/192127 Omeprazole 20 Mg Capsule.dr, 1 CAP PO DAILY, (Reported) Ondansetron 4 Mg Tab.rapdis, 4 MG PO Q4H Prescribed by: WILLIS BROTHERS on 03/03/192127 [Micardis] , ?MG DAILY, (Reported) [Mytab Chew] , 1-2 QID, (Reported) Patient Home Medication List Home Medication List Reviewed: Yes Review of Systems Review of Systems Constitutional: no symptoms reported EENTM: no symptoms reported Respiratory: no symptoms reported Cardiovascular: no symptoms reported Gastrointestinal: abdominal pain Skin: no symptoms reported, other (bruising from recent procedures) Past Hatijcr-Ycyhbv-Eophsk Hx Patient Social History 2nd Hand Smoke Exposure: No Recent Hopitalizations: No Immunizations Up To Date Tetanus Booster (TDap): More than 5yrs Date of Influenza Vaccine: Jul 31, 2016 Past Medical History Surgeries: Yes Abdominal, Gallbladder, Renal, Tonsillectomy Respiratory: No Cardiac: Yes (FREQUENT SYNCOPE--MOST OF LIFE) Coronary Artery Disease, Hypertension, Syncope Neurological: Yes Vertigo 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 0.0oz. 64.219066xe; 26.2 BMI Method:Stated General Appearance: No Apparent Distress HEENT: PERRL/EOMI, TMs Normal Neck: Full Range of Motion, Normal Inspection Respiratory: Chest Non Tender, Lungs Clear, Normal Breath Sounds Cardiovascular: Regular Rate, Rhythm, No Edema, Normal Peripheral Pulses, Other (systolic ejection murmur heard best at the left sternal border) Gastrointestinal: Normal Bowel Sounds (abdomen is diffusely tender to palpate but no guarding or rebound) Extremity: Normal Capillary Refill, Normal Inspection, Non Tender, Other (bruising and ecchymosis are present in the right groin but the patient has good pulses. No masses palpated. Over the right radial artery, there is also ecchym osis and a small palpable nodule but good pulses.) Neurologic/Psychiatric: Alert, Oriented x3 Progress/Results/Core Measures Suspected Sepsis SIRS Temperature: Pulse: Respiratory Rate: Laboratory Tests 03/16/19 10:30: White Blood Count 12.8H Blood Pressure / Mean: Laboratory Tests 03/16/19 10:30: Creatinine 1.53H, Platelet Count 398, Total Bilirubin 0.6 Results/Orders Lab Results Laboratory Tests Test 03/16/19 10:30 Range/Units White Blood Count 12.8 H 4.3-11.0 10^3/uL Red Blood Count 4.01 L 4.35-5.85 10^6/uL Hemoglobin 12.1 11.5-16.0 G/DL Hematocrit 36 35-52 % Mean Corpuscular Volume 90 80-99 FL Mean Corpuscular Hemoglobin 30 25-34 PG Mean Corpuscular Hemoglobin Concent 30 L 32-36 G/DL Red Cell Distribution Width 13.6 10.0-14.5 % Platelet Count 398 130-400 10^3/uL Mean Platelet Volume 9.7 7.4-10.4 FL Neutrophils (%) (Auto) 62 42-75 % Lymphocytes (%) (Auto) 24 12-44 % Monocytes (%) (Auto) 7 0-12 % Eosinophils (%) (Auto) 6 0-10 % Basophils (%) (Auto) 0 0-10 % Neutrophils # (Auto) 7.9 H 1.8-7.8 X 10^3 Lymphocytes # (Auto) 3.1 1.0-4.0 X 10^3 Monocytes # (Auto) 0.9 0.0-1.0 X 10^3 Eosinophils # (Auto) 0.8 H 0.0-0.3 10^3/uL Basophils # (Auto) 0.1 0.0-0.1 10^3/uL Neutrophils % (Manual) 63 % Lymphocytes % (Manual) 20 % Monocytes % (Manual) 6 % Eosinophils % (Manual) 9 % Basophils % (Manual) 0 % Band Neutrophils 2 % Blood Morphology Comment NORMAL Sodium Level 142 135-145 MMOL/L Potassium Level 3.6 3.6-5.0 MMOL/L Chloride Level 104 98-107 MMOL/L Carbon Dioxide Level 18 L 21-32 MMOL/L Anion Gap 20 H 5-14 MMOL/L Blood Urea Nitrogen 25 H 7-18 MG/DL Creatinine 1.53 H 0.60-1.30 MG/DL Estimat Glomerular Filtration Rate 32 BUN/Creatinine Ratio 16 Glucose Level 105 70-105 MG/DL Calcium Level 9.6 8.5-10.1 MG/DL Corrected Calcium 9.8 8.5-10.1 MG/DL Total Bilirubin 0.6 0.1-1.0 MG/DL Aspartate Amino Transf (AST/SGOT) 21 5-34 U/L Alanine Aminotransferase (ALT/SGPT) 17 0-55 U/L Alkaline Phosphatase 77 40-136 U/L Troponin T 177 *H <=10 NG/L Total Protein 7.1 6.4-8.2 GM/DL Albumin 3.7 3.2-4.5 GM/DL Lipase 38 8-78 U/L My Orders Orders - TRESSA LOPEZ DO Cbc And Manual Diff (03/16/19 10:30) Troponin T (03/16/19 10:30) Ekg Tracing (03/16/19 10:30) Ns Iv 500 Ml (Sodium Chloride 0.9%) (03/16/19 10:45) Lidocaine 2% Viscous 15 Ml (Xylocaine Vi (03/16/19 10:45) Antacid Suspension (Mylanta Suspension (03/16/19 10:45) Lipase (03/16/19 10:39) Iohexol Injection (Omnipaque 350 Mg/Ml 1 (03/16/19 11:00) Received Contrast (Hold Metformin- Contr (03/16/19 11:00) Sodium Chloride Flush (Catheter Flush Sy (03/16/19 11:00) Ns (Ivpb) (Sodium Chloride 0.9% Ivpb Bag (03/16/19 11:00) Ondansetron Injection (Zofran Injectio (03/16/19 11:00) Fentanyl Injection (Sublimaze Injection (03/16/19 11:00) Comprehensive Metabolic Panel (03/16/19 10:30) Ct Chest/Abdomen/Pelvis Wo (03/16/19 11:19) Medications Given in ED Current Medications Medications Dose Ordered Sig/Hitesh Route Start Time Stop Time Status Last Admin Dose Admin Al Hydrox/Mg Hydrox/Simethicone 30 ml ONCE ONCE PO 03/16/19 10:45 03/16/19 10:46 DC 03/16/19 11:03 30 ML Fentanyl Citrate 50 mcg ONCE ONCE IVP 03/16/19 11:00 03/16/19 11:01 DC 03/16/19 10:56 50 MCG Lidocaine HCl 15 ml ONCE ONCE PO 03/16/19 10:45 03/16/19 10:46 DC 03/16/19 11:03 15 ML Ondansetron HCl 4 mg ONCE ONCE IVP 03/16/19 11:00 03/16/19 11:01 DC 03/16/19 10:56 4 MG Vital Signs/I&O Capillary Refill : Progress Note : Time: 10:38 Progress Note Patient is seen and examined. According to daughter, she has been having this pain every morning after she takes her medications. That said, we do not want to miss any potential complication from the patient's recent procedures. CT scans are ordered. We'll check a troponin and EKG along with abdominal pain workup. GI cocktail was ordered. 14:30: ED Summary: Patient was evaluated in the ER with symptoms that seemed most consistent with esophagitis or gastritis. She has this diagnosis that is known as she has had an upper endoscopy completed within the last 7 days. Unfortunately, the patient's troponin was elevated today. I checked with [facility] where the patient was recently admitted and her most recent troponin was not elevated. The patient underwent cardiac catheterization with stent placement on March 10. This was because she had an abnormal stress test. I spoke to the patient's primary riveter hand at [facility]. He recommended that we do a CPK or CK-MB. Unfortunately, neither of these tests are available at this facility. I spoke to the family about options and they requested transfer back to [facility]. Following that, I spoke to the hospitalist vp organizational development and the patient was accepted for transfer. She was sent via EMS. During the ED course here, the patient had improvement of her symptoms following GI cocktail and a dose of Zofran. The patient was otherwise stable. She was noted to have mild elevation of her creatinine which is a new finding for her. She was given a gentle fluid bolus in the ER prior to transfer. Both the patient and her family were agreeable to the transfer plan of care. ECG Initial ECG Impression Date: March 16, 2019 Initial ECG Impression Time: 11:45 Initial ECG Rate: 54 Initial ECG Intervals: Normal Initial ECG Impression: Normal Diagnostic Imaging Diagonstic Imaging: CT Departure Impression Primary Impression: Acute kidney injury Additional Impressions: Gastritis Elevated troponin Disposition: XFER SHT-TRM HOSP Condition: Improved Admissions Decision to Admit/Date: March 16, 2019 Time/Decision to Admit Time: 12:40 Transfer Time Spoke to Accepting Phy: 12:40 Transfer Progress Notes I spoke to Dr. Agustin Harris, the hospitalist, who did agree to primarily admit the patient to [facility]. Transfer Time: 14:29 Transfer Facility: [facility] Method of Transfer: EMS Departure-Patient Inst. Referrals: WILLIS AKERS MD (PCP/Family) Primary Care Physician TRESSA LOPEZ DO March 16, 2019 10:38
[2019-03-16] MEDS ORDERED: LIDOCAINE 2% VISCOUS 15 ML UDC PO ONE (10:45)
[2019-03-16] MEDS ORDERED: NS IV 500 ML 500 ML IV SCH (10:45)
[2019-03-16] MEDS ORDERED: ANTACID SUSP 30 ML UDC (MYLANTA) PO ONE (10:45)
--- NOTE | 2019-03-16 10:45 | NUR ---
FAMILY TO DESK STATING, "I NEED A DR TO ORDER PAIN MEDS AND NAUSEA MED NOW."
[2019-03-16 10:47] LABS: BASOPHILS # (AUTO) 0.1 10^3/uL (0.0-0.1); BASOPHILS % (AUTO) 0 % (0-10); EOSINOPHILS # (AUTO) 0.8 10^3/uL (0.0-0.3); EOSINOPHILS % (AUTO) 6 % (0-10); HEMATOCRIT 36 % (35-52); HEMOGLOBIN 12.1 G/DL (11.5-16.0); LYMPHOCYTES # (AUTO) 3.1 X 10^3 (1.0-4.0); LYMPHOCYTES % (AUTO) 24 % (12-44); MEAN CORPUSCULAR HEMOGLOBIN 30 PG (25-34); MEAN CORPUSCULAR HGB CONC 30 G/DL (32-36); MEAN CORPUSCULAR VOLUME 90 FL (80-99); MEAN PLATELET VOLUME 9.7 FL (7.4-10.4); MONOCYTES # (AUTO) 0.9 X 10^3 (0.0-1.0); MONOCYTES % (AUTO) 7 % (0-12); NEUTROPHILS # (AUTO) 7.9 X 10^3 (1.8-7.8); NEUTROPHILS % (AUTO) 62 % (42-75); PLATELET COUNT 398 10^3/uL (130-400); RED CELL DISTRIBUTION WIDTH 13.6 % (10.0-14.5); WHITE BLOOD COUNT 12.8 10^3/uL (4.3-11.0)
--- NOTE | 2019-03-16 10:50 | NUR ---
EXPLAINING TO FAMILY DR HAD ORDERED A GI COCKTAIL TO TEST EFFECTIVENESS OF THIS TYPE OF PAIN SHE IS EXPERIENCING. FAMILY STATE PT FEELS SHE WILL VOMIT SOON. SPOKE TO DR LOPEZ.
--- NOTE | 2019-03-16 10:56 | NUR ---
ZOFRAN 4 MG IV FOLLOWED BY FENTANYL 50 MCG SIVP GIVEN. NS IS INFUSING AT A KVO RATE. PT BENDS RAC FREQUENTLY.
[2019-03-16] MEDS ORDERED: NS 100 ML (IVPB) BAG IV ONE (11:00)
[2019-03-16] MEDS ORDERED: ONDANSETRON 4 MG/2 ML (SDV) Z0FRAN IVP ONE (11:00)
[2019-03-16] MEDS ORDERED: IOHEXOL 350 MG/ML 100 ML (OMNIPAQUE 350) VIAL IV ONE (11:00)
[2019-03-16] MEDS ORDERED: CATHETER FLUSH 10 ML SYR IV PRN (11:00)
[2019-03-16] MEDS ORDERED: HOLD METFORMIN - RECEIVED CONTRAST 20 ML VIAL IV SCH (11:00)
[2019-03-16] MEDS ORDERED: fentaNYL INJECTION 100 MCG/2 ML AMP IVP ONE (11:00)
--- NOTE | 2019-03-16 11:03 | NUR ---
GI COCKTAIL ADMINISTERED PT REPORTS FEELING BETTER BUT GETTING SLEEPY.
[2019-03-16 11:08] LABS: BILIRUBIN,TOTAL 0.6 MG/DL (0.1-1.0); CALCIUM 9.6 MG/DL (8.5-10.1); CREATININE SERUM 1.53 MG/DL (0.60-1.30); POTASSIUM 3.6 MMOL/L (3.6-5.0)
[2019-03-16 11:09] LABS: ALBUMIN 3.7 GM/DL (3.2-4.5); TOTAL PROTEIN 7.1 GM/DL (6.4-8.2)
--- NOTE | 2019-03-16 11:09 | NUR ---
RETURNED A CALL TO LAB TO VERIFY THAT NANCY IN LAB CALLING A CRITICAL TROPONIN 177 ON THIS PT AND WAS CONFIRMED.
[2019-03-16 11:10] LABS: BAND NEUTROPHILS 2 %; BASOPHILS % (MANUAL) 0 %; EOSINOPHILS % (MANUAL) 9 %; LYMPHOCYTES % (MANUAL) 20 %; MONOCYTES % (MANUAL) 6 %; NEUTROPHILS % (MANUAL) 63 %; RBC MORPH NORMAL
--- NOTE | 2019-03-16 11:59 | Diagnostic Imaging Report ---
PROCEDURE: CT chest, abdomen, and pelvis without contrast. TECHNIQUE: Multiple contiguous axial images were obtained through the chest, abdomen, and pelvis without the use of intravenous contrast. Auto Exposure Controls were utilized during the CT exam to meet ALARA standards for radiation dose reduction. INDICATION: Nausea, vomiting, abdominal pain. History of recent cardiac surgery. 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 There is some deviation of the trachea. No definitive evidence for pathologically enlarged mediastinal lymph nodes on noncontrast imaging. Heart size upper limits normal. Long coronary artery stent in the region of the LAD as well as coronary artery calcification. Trace pericardial effusion. Thoracic aortic contour unremarkable. Small hiatal hernia. Lung zelaya with minimal areas of prominent interstitial markings left lung base. No infiltrate. No significant effusion or pneumothorax. CT ABDOMEN and PELVIS: Unenhanced liver and adrenal glands are unremarkable. Spleen is absent. There is what appears to be several small splenules in the left upper quadrant. Pancreas is mildly atrophic. The kidneys are unremarkable. No obstruction. The abdominal aorta with moderate wall calcification, nonaneurysmal in contour. Stomach is distended with gas and fluid. A few mildly prominent fluid-filled loops of small bowel are present. However no abnormal dilated loops of bowel or findings to suggest high degree obstruction. There is contrast within a large portion of the distal colon. Extensive colonic diverticulosis. Appendix not visualized, may be absent. No abnormal ascites or free air. Urinary bladder unremarkable. Uterus and adnexa demonstrates a small hypodense nodule at the fundal aspect of the uterus could be reflective of perhaps a small fibroid at 1 cm in size. There is some stranding and haziness at the right inguinal region likely owing to recent catheterization. Small amount of fluid is noted in this area. There is a track-like region to the right inguinal region possibly a pseudoaneurysm would be difficult to exclude. There is a small hyperdense foci in the adjacent intraluminal posterior wall of the right common femoral artery. IMPRESSION: CT CHEST: 1. Negative for acute abnormality of the chest. Coronary artery calcification with appearance of coronary artery stent. CT ABDOMEN and PELVIS: 1. Rather significantly distended stomach with fluid and gas. Etiology or significance is indeterminate. Otherwise, no findings to suggest high degree bowel obstruction. Colonic diverticulosis without evidence for acute diverticulitis. 2. Haziness and stranding in the right inguinal region likely owing to recent catheterization. There is a high density region somewhat nodular in appearance with track-like defect to the common femoral artery possibility of a small pseudoaneurysm would be difficult to exclude on this study. Additional small punctate intraluminal density is noted posteriorly near this area. Again may be owing to the change from the catheterization. However, given intraluminal density is somewhat indeterminate. If further assessment of these findings is desired, Doppler ultrasound imaging would be recommended. Dictated by: Dictated on workstation # [id number]
--- NOTE | 2019-03-16 12:00 | NUR ---
spoke with [facility] transfer coordinators.
--- NOTE | 2019-03-16 12:18 | NUR ---
speaking to family about beginning the arrangements/accepatance but pending till room number. had pt sign transfer form.
--- NOTE | 2019-03-16 12:47 | NUR ---
Call to [facility]al [employer] Technician Nurse and reached voicemail. Message left for room number assignment. Pt's family very anxious for transfer.
--- NOTE | 2019-03-16 13:30 | NUR ---
Dr called to [facility] to ask for room assignment to get transfer EMS available now.
--- NOTE | 2019-03-16 13:35 | NUR ---
Room number obtained 411-2.
--- NOTE | 2019-03-16 13:45 | NUR ---
Report given to Elsa ZHANG for Odalys ZHANG/primary @ lunch.
--- NOTE | 2019-03-16 14:15 | NUR ---
[facility] arriving.
[2019-03-16 14:25] VITALS: BP 140/45
--- NOTE | 2019-03-16 14:25 | NUR ---
Pt transferred to [facility] at this time with [facility].
--- NOTE | 2019-03-16 14:25 | NUR ---
Pt's NS 500 ml infused at this time, pt reports to [facility] and this RN no pain is present at this time.
== END 2019-03-16 14:25 | disposition short-term general hospital (02) ==
LOC: ER FS 10:20
DX: N17.9 Acute kidney failure, unspecified (principal); K29.70 Gastritis, unspecified, without bleeding; R79.89 Other specified abnormal findings of blood chemistry; I25.10 Atherosclerotic heart disease of native coronary artery without angina pectoris; K21.0 Gastro-esophageal reflux disease with esophagitis; E03.9 Hypothyroidism, unspecified; Z87.19 Personal history of other diseases of the digestive system; Z87.442 Personal history of urinary calculi; Z95.5 Presence of coronary angioplasty implant and graft; Z88.1 Allergy status to other antibiotic agents; Z88.0 Allergy status to penicillin; Z90.89 Acquired absence of other organs; Z98.890 Other specified postprocedural states
CPT/HCPCS: 36415; 71250; 74176; 80053; 83690; 84484; 85007; 85027; 93005; 96361; 96374; 96375

== ENCOUNTER 2019-05-23 14:37 | Emergency (ER) | payer MEDICARE, OTHER ==
[~2019-05-23] VITALS: Ht 154.9 cm; Wt 60.8 kg
[2019-05-23] MEDS ORDERED: NS IV 1000 ML 1,000 ML IV ONE (14:50)
[2019-05-23 15:00] LABS: BASOPHILS # (AUTO) 0.1 10^3/uL (0.0-0.1); BASOPHILS % (AUTO) 0 % (0-10); EOSINOPHILS # (AUTO) 0.7 10^3/uL (0.0-0.3); EOSINOPHILS % (AUTO) 4 % (0-10); HEMATOCRIT 37 % (35-52); HEMOGLOBIN 12.5 G/DL (11.5-16.0); LYMPHOCYTES # (AUTO) 5.9 X 10^3 (1.0-4.0); LYMPHOCYTES % (AUTO) 34 % (12-44); MEAN CORPUSCULAR HEMOGLOBIN 30 PG (25-34); MEAN CORPUSCULAR HGB CONC 34 G/DL (32-36); MEAN CORPUSCULAR VOLUME 88 FL (80-99); MEAN PLATELET VOLUME 9.9 FL (7.4-10.4); MONOCYTES # (AUTO) 1.6 X 10^3 (0.0-1.0); MONOCYTES % (AUTO) 9 % (0-12); NEUTROPHILS # (AUTO) 8.9 X 10^3 (1.8-7.8); NEUTROPHILS % (AUTO) 52 % (42-75); PLATELET COUNT 344 10^3/uL (130-400); RED CELL DISTRIBUTION WIDTH 14.2 % (10.0-14.5); WHITE BLOOD COUNT 17.1 10^3/uL (4.3-11.0)
[2019-05-23 15:14] LABS: ALANINE AMINOTRANSFERASE 14 U/L (0-55); ALBUMIN 3.6 GM/DL (3.2-4.5); ALKALINE PHOSPHATASE 76 U/L (40-136); BILIRUBIN,TOTAL 0.4 MG/DL (0.1-1.0); BUN/CREATININE RATIO 34; CALCIUM 9.5 MG/DL (8.5-10.1); CARBON DIOXIDE 18 MMOL/L (21-32); CHLORIDE 104 MMOL/L (98-107); CREATININE SERUM 1.31 MG/DL (0.60-1.30); GFR ESTIMATED 38; GLUCOSE 101 MG/DL (70-105); MAGNESIUM 2.1 MG/DL (1.8-2.4); POTASSIUM 3.9 MMOL/L (3.6-5.0); SODIUM 135 MMOL/L (135-145); TOTAL PROTEIN 6.8 GM/DL (6.4-8.2)
[2019-05-23 15:32] LABS: EOSINOPHILS % (MANUAL) 4 %; LYMPHOCYTES % (MANUAL) 39 %; MONOCYTES % (MANUAL) 9 %; NEUTROPHILS % (MANUAL) 48 %; RBC MORPH NORMAL
--- NOTE | 2019-05-23 15:39 | Diagnostic Imaging Report ---
PROCEDURE: US carotid duplex, bilateral. TECHNIQUE: Multiple real-time grayscale images were obtained over the carotid arteries in various projections, bilaterally. Additional spectral analysis and color Doppler duplex images were also obtained. INDICATION: Syncope FINDINGS: Color images demonstrate mild scattered plaque formation. This is most pronounced at the level of the carotid bifurcations. Common carotid arteries: Patent. There are no abnormally elevated velocities to suggest a hemodynamically significant stenosis. Internal carotid arteries: Patent. There are no abnormally elevated velocities to suggest a hemodynamically significant stenosis. External carotid arteries: Patent. Vertebral arteries: Patent and with antegrade direction of flow. Parameters based on the consensus panel Lange-Scale and Doppler ultrasound criteria published August 2003, Radiology, Volume 229. DOPPLER (peak systolic velocity M/S Right Left CCA .83 1.1 ICA Proximal .67 .74 ICA Mid .78 .81 ICA Distal .68 1.1 RATIO .9 1 ECA 1.1 1 VERT .47 .45 IMPRESSION: 1. Carotid Doppler imaging demonstrates no findings to suggest a hemodynamically significant stenosis of the internal carotid arteries at this time. Dictated by: Dictated on workstation # [id number]
[2019-05-23 16:02] LABS: BILIRUBIN,URINE NEGATIVE (NEGATIVE); CLARITY,URINE CLEAR; COLOR,URINE YELLOW; GLUCOSE, URINE (UA) NEGATIVE (NEGATIVE); KETONES,URINE NEGATIVE (NEGATIVE); LEUKOCYTE ESTERASE ,URINE 3+ (NEGATIVE); NITRITE,URINE NEGATIVE (NEGATIVE); PH,URINE 5 (5-9); PROTEIN,URINE 1+ (NEGATIVE); UROBILINOGEN,URINE NORMAL (NORMAL)
--- NOTE | 2019-05-23 16:25 | Diagnostic Imaging Report ---
INDICATION: Syncopal episode. TECHNIQUE: Two view chest, 4:12 p.m. CORRELATION STUDY: 03/03/2019. FINDINGS: The heart size, mediastinal configuration and pulmonary vasculature are within normal limits. Mildly tortuous course of the thoracic aorta. Slight leftward deviation of the trachea is attributed to the known thyroid gland enlargement. Lung zelaya are mildly hyperinflated with chronic changes. No infiltrate. Visualized osseous structures are unremarkable. IMPRESSION: Negative for acute findings in the chest. Chronic changes about the lung parenchyma. Dictated by: Dictated on workstation # [id number]
[2019-05-23 16:26] LABS: BACTERIA,URINE FEW /HPF; SQUAMOUS EPITHELIAL CELL,UR 0-2 /HPF
--- NOTE | 2019-05-23 17:33 | Diagnostic Imaging Report ---
Clinical indication: Patient with syncopal episode today. Exam: Axial CT scan of the brain performed without IV contrast. Comparison: Head CT without contrast dated 06/19/2018. Findings: There is no evidence of acute cerebral infarct, intracranial hemorrhage, or gross mass effect. Diffuse brain parenchymal volume loss is again seen. There is subtle patchy low-attenuation white matter changes involving both cerebral hemispheres which has not significantly progressed in the interim. 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 There is normal gonzalez-white matter distinction. There is no significant midline shift or herniation. There is no evidence of hydrocephalus. The basal cisterns are unremarkable. The skull, extracranial soft tissue, and orbits are unremarkable. There is mild mucosal thickening involving the ethmoid sinus. Temporal bones show no significant abnormality. Impression: 1: Stable CT scan of the brain with no evidence of acute intracranial process. 2: Stable chronic small vessel ischemic disease. Dictated by: Dictated on workstation # [id number]
[2019-05-23] MEDS ORDERED: CIPR250T3 PO (17:48)
--- NOTE | 2019-05-23 17:48 | ED Syncope ---
General Chief Complaint: Dizziness/Syncope Stated Complaint: SYNCOPE Nursing Triage Note: PT TO ROOM 08 VIA EMS. PT REPORTS DIZZYNESS AND BEING LIGHTHEADED. PT WAS IN CARDIAC REHAB THIS MORNING [id number]. AT [facility] THIS AFTERNOON PT BECAME LIGHTHEADED WHILE UNDER THE DRYER. EMS PICKED PT UP AT [facility]. Source of Information: Patient, EMS Exam Limitations: No Limitations History of Present Illness Date Seen by Provider: May 23, 2019 Time Seen by Provider: 14:41 Initial Comments This 89-year-old woman presents to the emergency room after having a syncopal episode at her [facility]. There was no collapse or injury has she was caught by bystanders. They report she was unresponsive for about 2 minutes. She had loss of continence during that time. Patient had been to cardiac rehabilitation earlier in the day and exercised for about 40 minutes. She felt fairly well at that time but felt more tired than usual. She denies any chest pain. She reports having upper abdominal pain that she related to a history of ulcers just prior to the syncopal episode. Patient also states "I pass out very easily". EMS reports fingerstick blood sugar was 116. She denies any symptoms at this time other than feeling fatigued. Patient has a history of recent stent placement in [place]. 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 Allergies and Home Medications Allergies Coded Allergies: Cephalexin Monohydrate (Verified Allergy, Unknown, 03/04/17) Penicillins (Verified Allergy, Unknown, 03/04/17) Home Medications Budesonide/Formoterol Fumarate 10.2 Gm Hfa.aer.ad, 2 PUFF IH BID, (Reported) Ciprofloxacin HCl 250 Mg Tablet, 250 MG PO BID Prescribed by: AUNDREA NICHOLS on 05/23/19 174 Colestipol HCl 1 Gm Tablet, 1 GM PO BID, (Reported) Ergocalciferol 50,000 Unit Capsule, 50,000 UNIT PO WEEKLY, (Reported) Levothyroxine Sodium 150 Mcg Tablet, 0.5 EACH PO DAILY, (Reported) Nitrofurantoin Monohyd/M-Cryst 100 Mg Capsule, 100 MG PO BID Prescribed by: WILLIS BROTHERS on 03/03/192127 Omeprazole 20 Mg Capsule., 1 CAP PO DAILY, (Reported) Ondansetron 4 Mg Tab.rapdis, 4 MG PO Q4H Prescribed by: WILLIS BROTHERS on 03/03/192127 [Micardis] , ?MG DAILY, (Reported) [Mytab Chew] , 1-2 QID, (Reported) Patient Home Medication List Home Medication List Reviewed: Yes Review of Systems Constitutional: no symptoms reported EENTM: no symptoms reported Respiratory: no symptoms reported Cardiovascular: see HPI Gastrointestinal: see HPI Genitourinary: no symptoms reported Musculoskeletal: no symptoms reported Skin: no symptoms reported Psychiatric/Neurological: See HPI Past Tmplvsy-Axvzex-Ehglhp Hx Patient Social History Alcohol Use: Denies Use Recreational Drug Use: No Smoking Status: Never a Smoker 2nd Hand Smoke Exposure: No Recent Foreign Travel: No Contact w/Someone Who Travel: No Recent Infectious Disease Expo: No Recent Hopitalizations: No Physical Abuse: No Sexual Abuse: No Mistreated: No Fear: No Immunizations Up To Date Tetanus Booster (TDap): More than 5yrs Date of Pneumonia Vaccine: March 12, 2019 Date of Influenza Vaccine: Jul 31, 2018 Seasonal Allergies Seasonal Allergies: No Past Medical History Surgeries: Yes (EGD) Abdominal, Coronary Stent, Gallbladder, Renal, Tonsillectomy Respiratory: No Cardiac: Yes (FREQUENT SYNCOPE--MOST OF LIFE) Coronary Artery Disease, Hypertension, Syncope Neurological: Yes Vertigo : No [employer] History: Menopausal Genitourinary: Yes (Urge Incontinence) Kidney Stones, Renal Failure (chronic kidney disease) Gastrointestinal: Yes Gastroesophageal Reflux, Hiatal Hernia, Gall Bladder Disease Musculoskeletal: No Endocrine: Yes Hypothyroidsim HEENT: No Cancer: No Psychosocial: No Integumentary: No Blood Disorders: No Family Medical History No Pertinent Family Hx Physical Exam Vital Signs Vital Signs - First Documented 05/23/19 14:42 Temp 97.9 Pulse 48 Resp 15 B/P (MAP) 141/58 (85) Pulse Ox 97 O2 Delivery Room Air Capillary Refill : Less Than 3 Seconds Height, Weight, BMI Height: 5'1.00" Weight: 134lbs. 0.0oz. [id number]; 26.2 BMI Method:Stated General Appearance: No Apparent Distress, WD/WN HEENT: PERRL/EOMI, Normal ENT Inspection Neck: Normal Inspection; No Carotid Bruit, No JVD Cardiovascular: Regular Rate, Rhythm, No Edema, No Murmur, Normal Peripheral Pulses Respiratory: Lungs Clear, Normal Breath Sounds, No Respiratory Distress Gastrointestinal: Normal Bowel Sounds, Non Tender, Soft Extremities: Normal Inspection, No Calf Tenderness, No Pedal Edema Neurologic/Psychiatric: Alert, Oriented x3, No Motor/Sensory Deficits, Normal Mood/Affect, maitre d' II-XII Norm as Tested Cranial Nerves: Normal Hearing, Normal Speech, PERRL Motor/Sensory: No Motor Deficit, No Sensory Deficit Skin: Normal Color, Warm/Dry Progress/Results/Core Measures Results/Orders Lab Results Laboratory Tests Test 05/23/19 13:35 05/23/19 15:56 Range/Units White Blood Count 17.1 H 4.3-11.0 10^3/uL Red Blood Count 4.21 L 4.35-5.85 10^6/uL Hemoglobin 12.5 11.5-16.0 G/DL Hematocrit 37 35-52 % Mean Corpuscular Volume 88 80-99 FL Mean Corpuscular Hemoglobin 30 25-34 PG Mean Corpuscular Hemoglobin Concent 34 32-36 G/DL Red Cell Distribution Width 14.2 10.0-14.5 % Platelet Count 344 130-400 10^3/uL Mean Platelet Volume 9.9 7.4-10.4 FL Neutrophils (%) (Auto) 52 42-75 % Lymphocytes (%) (Auto) 34 12-44 % Monocytes (%) (Auto) 9 0-12 % Eosinophils (%) (Auto) 4 0-10 % Basophils (%) (Auto) 0 0-10 % Neutrophils # (Auto) 8.9 H 1.8-7.8 X 10^3 Lymphocytes # (Auto) 5.9 H 1.0-4.0 X 10^3 Monocytes # (Auto) 1.6 H 0.0-1.0 X 10^3 Eosinophils # (Auto) 0.7 H 0.0-0.3 10^3/uL Basophils # (Auto) 0.1 0.0-0.1 10^3/uL Neutrophils % (Manual) 48 % Lymphocytes % (Manual) 39 % Monocytes % (Manual) 9 % Eosinophils % (Manual) 4 % Blood Morphology Comment NORMAL Sodium Level 135 135-145 MMOL/L Potassium Level 3.9 3.6-5.0 MMOL/L Chloride Level 104 98-107 MMOL/L Carbon Dioxide Level 18 L 21-32 MMOL/L Anion Gap 13 5-14 MMOL/L Blood Urea Nitrogen 44 H 7-18 MG/DL Creatinine 1.31 H 0.60-1.30 MG/DL Estimat Glomerular Filtration Rate 38 BUN/Creatinine Ratio 34 Glucose Level 101 70-105 MG/DL Calcium Level 9.5 8.5-10.1 MG/DL Corrected Calcium 9.8 8.5-10.1 MG/DL Magnesium Level 2.1 1.8-2.4 MG/DL Total Bilirubin 0.4 0.1-1.0 MG/DL Aspartate Amino Transf (AST/SGOT) 20 5-34 U/L Alanine Aminotransferase (ALT/SGPT) 14 0-55 U/L Alkaline Phosphatase 76 40-136 U/L Troponin I < 0.028 <0.028 NG/ML B-Type Natriuretic Peptide 51.3 <100.0 PG/ML Total Protein 6.8 6.4-8.2 GM/DL Albumin 3.6 3.2-4.5 GM/DL Urine Color YELLOW Urine Clarity CLEAR Urine pH 5 5-9 Urine Specific [place] 1.010 L 1.016-1.022 Urine Protein 1+ H NEGATIVE Urine Glucose (UA) NEGATIVE NEGATIVE Urine Ketones NEGATIVE NEGATIVE Urine Nitrite NEGATIVE NEGATIVE Urine Bilirubin NEGATIVE NEGATIVE Urine Urobilinogen NORMAL NORMAL MG/DL Urine Leukocyte Esterase 3+ H NEGATIVE Urine RBC (Auto) 1+ H NEGATIVE Urine RBC NONE /HPF Urine WBC 5-10 H /HPF Urine Squamous Epithelial Cells 0-2 /HPF Urine Renal Epithelial Cells 2-5 /HPF Urine Crystals NONE /LPF Urine Bacteria FEW H /HPF Urine Casts NONE /LPF Urine Mucus NEGATIVE /LPF Urine Culture Indicated YES My Orders Orders - AUNDREA GARCES MD BNP (05/23/19 14:47) Cbc With Automated Diff (05/23/19 14:47) Comprehensive Metabolic Panel (05/23/19 14:47) Magnesium (05/23/19 14:47) Troponin I (05/23/19 14:47) Ua Culture If Indicated (05/23/19 14:47) Ed Iv/Invasive Line Start (05/23/19 14:47) Ekg Tracing (05/23/19 14:47) Monitor-Rhythm Ecg Trace Only (05/23/19 14:47) Ns Iv 1000 Ml (Sodium Chloride 0.9%) (05/23/19 14:50) Us Carotid Luci Complete [id number] (05/23/19 14:50) Manual Differential (05/23/19 13:35) Chest Pa/Lat (2 View) (05/23/19 15:59) Urine Culture (05/23/19 15:56) Ct Head Wo (05/23/19 16:33) Medications Given in ED Current Medications Medications Dose Ordered Sig/Hitesh Route Start Time Stop Time Status Last Admin Dose Admin Sodium Chloride 1,000 ml @ 0 mls/hr Q0M ONCE IV 05/23/19 14:50 05/23/19 14:51 DC 05/23/19 15:10 0 MLS/HR Vital Signs/I&O 05/23/19 14:42 Temp 97.9 Pulse 48 Resp 15 B/P (MAP) 141/58 (85) Pulse Ox 97 O2 Delivery Room Air Blood Pressure Mean: 85 Progress Progress Note : Progress Note Patient's ER stay was uneventful. Workup was unremarkable with the exception of mild urinary tract infection. Imaging studies including carotid ultrasound, CT of the head, and chest x-ray were negative. Initial ECG Impression Date: May 23, 2019 Initial ECG Impression Time: 14:53 Initial ECG Rate: 49 Initial ECG Rhythm: S.Krishna Initial ECG Intervals: Normal Initial ECG Impression: Sinus Bradycardia Comment Mild sinus bradycardia with no ST elevation or depression. No abnormal intervals. LVH. Diagnostic Imaging Diagonstic Imaging: Ultrasound Plain Films/CT/US/NM/MRI: other (bilateral carotid ultrasound) Comments Bilateral carotid ultrasound report reviewed. See report below: NAME: HARRIS [facility] REC#: [id number] PT STATUS: REG ER : 1930 PHYSICIAN: AUNDREA GARCES MD ADMIT DATE: 05/23/19/ER Signed Date of Exam: 05/23/19 US CAROTID LUCI COMPLETE [id number] PROCEDURE: US carotid duplex, bilateral. TECHNIQUE: Multiple real-time grayscale images were obtained over the carotid arteries in various projections, bilaterally. Additional spectral analysis and color Doppler duplex images were also obtained. INDICATION: Syncope FINDINGS: Color images demonstrate mild scattered plaque formation. This is most pronounced at the level of the carotid bifurcations. Common carotid arteries: Patent. There are no abnormally elevated velocities to suggest a hemodynamically significant stenosis. Internal carotid arteries: Patent. There are no abnormally elevated velocities to suggest a hemodynamically significant stenosis. External carotid arteries: Patent. Vertebral arteries: Patent and with antegrade direction of flow. Parameters based on the consensus panel Lange-Scale and Doppler ultrasound criteria published August 2003, Radiology, Volume 229. DOPPLER (peak systolic velocity M/S Right Left CCA .83 1.1 ICA Proximal .67 .74 ICA Mid .78 .81 ICA Distal .68 1.1 RATIO .9 1 ECA 1.1 1 VERT .47 .45 IMPRESSION: 1. Carotid Doppler imaging demonstrates no findings to suggest a hemodynamically significant stenosis of the internal carotid arteries at this time. Dictated by: Dictated on workstation # [id number] Dict: 05/23/19 1535 Trans: 05/23/19 1536 Interpreted by: TIMMY BENTLEY DO Electronically signed by: TIMMY BENTLEY DO 05/23/19 1536 Diagonstic Imaging: Xray Plain Films/CT/US/NM/MRI: chest Comments X-ray report reviewed. See report below: NAME: HARRIS [facility] REC#: [id number] PT STATUS: REG ER : 1930 PHYSICIAN: AUNDREA GARCES MD ADMIT DATE: 05/23/19/ER Signed Date of Exam: 05/23/19 CHEST PA/LAT (2 VIEW) INDICATION: Syncopal episode. TECHNIQUE: Two view chest, 4:12 p.m. CORRELATION STUDY: 03/03/2019. FINDINGS: The heart size, mediastinal configuration and pulmonary vasculature are within normal limits. Mildly tortuous course of the thoracic aorta. Slight leftward deviation of the trachea is attributed to the known thyroid gland enlargement. Lung zelaya are mildly hyperinflated with chronic changes. No infiltrate. Visualized osseous structures are unremarkable. IMPRESSION: Negative for acute findings in the chest. Chronic changes about the lung parenchyma. Dictated by: Dictated on workstation # [id number] Dict: 05/23/19 1620 Trans: 05/23/19 1642 Interpreted by: TIMMY BENTLEY DO Electronically signed by: TIMMY BENTLEY DO 05/23/19 1642 Diagonstic Imaging: CT Plain Films/CT/US/NM/MRI: head Comments CT head report reviewed. See report below: NAME: HARRIS [facility] REC#: [id number] PT STATUS: REG ER : 1930 PHYSICIAN: AUNDREA GARCES MD ADMIT DATE: 05/23/19/ER Signed Date of Exam: 05/23/19 CT HEAD WO Clinical indication: Patient with syncopal episode today. Exam: Axial CT scan of the brain performed without IV contrast. Comparison: Head CT without contrast dated 06/19/2018. Findings: There is no evidence of acute cerebral infarct, intracranial hemorrhage, or gross mass effect. Diffuse brain parenchymal volume loss is again seen. There is subtle patchy low-attenuation white matter changes involving both cerebral hemispheres which has not significantly progressed in the interim. 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 There is normal lange-white matter distinction. There is no significant midline shift or herniation. There is no evidence of hydrocephalus. The basal cisterns are unremarkable. The skull, extracranial soft tissue, and orbits are unremarkable. There is mild mucosal thickening involving the ethmoid sinus. Temporal bones show no significant abnormality. Impression: 1: Stable CT scan of the brain with no evidence of acute intracranial process. 2: Stable chronic small vessel ischemic disease. Dictated by: Dictated on workstation # [id number] Dict: 05/23/191724 Trans: 05/23/191755 Interpreted by: JANETT SIMMONS MD Electronically signed by: JANETT SIMMONS MD 05/23/191755 Departure Impression Primary Impression: Episode of syncope Qualified Codes: R55 - Syncope and collapse Additional Impression: Urinary tract infection Qualified Codes: N39.0 - Urinary tract infection, site not specified Disposition: 01 HOME, SELF-CARE Condition: Improved Departure-Patient Inst. Decision time for Depature: 17:40 Referrals: WILLIS AKERS MD (PCP/Family) Primary Care Physician Patient Instructions: Syncope (Fainting) (DC), Urinary Tract Infections in Adults Add. Discharge Instructions: Drink plenty of clear liquids. Complete your antibiotic as prescribed. Follow-up with Dr. Torres next week. Call his office on Sunday morning for an appointment. Follow-up with your primary care provider next week as well to review urine culture results. Return to the emergency room if you have any worsening problems or concerns. All discharge instructions reviewed with patient and/or family. Voiced understanding. Scripts Ciprofloxacin HCl (Ciprofloxacin HCl) 250 Mg Tablet 250 MG PO BID, #14 TAB Prov: AUNDREA GARCES MD 05/23/19 Copy Copies To 1: ROYA TORRES MD Copies To 2: WILLIS AKERS MD, JOSHUA T MD May 23, 2019 17:48
[2019-05-23 18:05] VITALS: BP 162/72
== END 2019-05-23 18:05 | disposition home or self-care (01) ==
LOC: EDUNIT# 14:37 → ER 14:41
DX: R55 Syncope and collapse (principal); N39.0 Urinary tract infection, site not specified; I25.10 Atherosclerotic heart disease of native coronary artery without angina pectoris; I12.9 Hypertensive chronic kidney disease with stage 1 through stage 4 chronic kidney disease, or unspecified chronic kidney disease; N18.9 Chronic kidney disease, unspecified; K21.9 Gastro-esophageal reflux disease without esophagitis; E03.9 Hypothyroidism, unspecified; Z87.442 Personal history of urinary calculi; Z88.1 Allergy status to other antibiotic agents; Z88.0 Allergy status to penicillin; Z95.5 Presence of coronary angioplasty implant and graft; Z90.89 Acquired absence of other organs
CPT/HCPCS: 36415; 70450; 71046; 80053; 81000; 83735; 83880; 84484; 85007; 85027; 87088; 93005; 93041; 93880; 96360

== ENCOUNTER 2019-06-06 09:36 | Emergency (ER) | payer MEDICARE, OTHER ==
[~2019-06-06] VITALS: Ht 154.9 cm; Wt 60.8 kg
[~2019-06-06 09:36] MED LIST changes: +CIPR250T3 PO
--- NOTE | 2019-06-06 09:59 | NUR ---
patient states that she does not want labs or xrays because she just had those 2 weeks ago. Wants to go seee Dr Torres but will take GI cocktail
[2019-06-06] MEDS ORDERED: LIDOCAINE 2% VISCOUS 15 ML UDC PO ONE (10:00)
[2019-06-06] MEDS ORDERED: ANTACID SUSP 30 ML UDC (MYLANTA) PO ONE (10:00)
--- NOTE | 2019-06-06 10:15 | ED GI ---
General Chief Complaint: Abdominal/GI Problems Stated Complaint: ABD PAIN Nursing Triage Note: C/O feeling "sick to her stomach" ongoing issue since Mother's Day this year. States she was supposed to see Dr Torres today but did not want to go there because she would sit in waiting room for an hour so came to ED. States she has an ulcer and is being treated. Sepsis Screen: No Definite Risk History of Present Illness Date Seen by Provider: Jun 06, 2019 Time Seen by Provider: 09:50 Initial Comments 89-year-old female is here because she is "sick to her stomach" patient reports she thinks she has an ulcer. Patient feels is currently being treated for an ulcer. Patient is here today because she is supposed to see Dr. Torres bit came in because she did not really awaiting room for an hour to be seen. Patient puncture after to be fixed today. Patient has not followed up with general surgery and her primary care recently. Discussed with patient that we will need to do a workup and patient does not want any labs, x-rays or anything else done. Patient one wants a medication to make her ulcer go away. Patient denies any fevers or chills. She complains only of nausea with no vomiting, diarrhea, black tarry stool or bloody stool. Allergies and Home Medications Allergies Coded Allergies: Cephalexin Monohydrate (Verified Allergy, Unknown, 03/04/17) Penicillins (Verified Allergy, Unknown, 03/04/17) Home Medications Budesonide/Formoterol Fumarate 10.2 Gm Hfa.aer.ad, 2 PUFF IH BID, (Reported) Ciprofloxacin HCl 250 Mg Tablet, 250 MG PO BID Prescribed by: AUNDREA NICHOLS on 05/23/191747 Colestipol HCl 1 Gm Tablet, 1 GM PO BID, (Reported) Ergocalciferol 50,000 Unit Capsule, 50,000 UNIT PO WEEKLY, (Reported) Levothyroxine Sodium 150 Mcg Tablet, 0.5 EACH PO DAILY, (Reported) Nitrofurantoin Monohyd/M-Cryst 100 Mg Capsule, 100 MG PO BID Prescribed by: WILLIS BROTHERS on 03/03/192127 Omeprazole 20 Mg Capsule., 1 CAP PO DAILY, (Reported) Ondansetron 4 Mg Tab.rapdis, 4 MG PO Q4H Prescribed by: WILLIS BROTHERS on 03/03/192127 [Micardis] , ?MG DAILY, (Reported) [Mytab Chew] , 1-2 QID, (Reported) Patient Home Medication List Home Medication List Reviewed: Yes Review of Systems Review of Systems Constitutional: No chills, No dizziness, No fever, No malaise Respiratory: Denies Cough, Denies Shortness of Air Cardiovascular: Denies Chest Pain, Denies Irregular Heart Rate Gastrointestinal: See HPI Musculoskeletal: see HPI Skin: see HPI Past [id number] Hx Past Med/Social Hx: Reviewed Nursing Past Med/Soc Hx Patient Social History Alcohol Use: Denies Use Recreational Drug Use: No Smoking Status: Never a Smoker 2nd Hand Smoke Exposure: No Recent Foreign Travel: No Contact w/Someone Who Travel: No Recent Infectious Disease Expo: No Recent Hopitalizations: No Physical Abuse: No Sexual Abuse: No Mistreated: No Fear: No Immunizations Up To Date Tetanus Booster (TDap): More than 5yrs Date of Pneumonia Vaccine: March 12, 2019 Date of Influenza Vaccine: Jul 31, 2018 Seasonal Allergies Seasonal Allergies: No Past Medical History Surgeries: Yes (EGD) Abdominal, Coronary Stent, Gallbladder, Renal, Tonsillectomy Respiratory: No Cardiac: Yes (FREQUENT SYNCOPE--MOST OF LIFE, 2 stents) Coronary Artery Disease, Hypertension, Syncope Neurological: Yes 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 0.0oz. 60.577856dp; 26.2 BMI Method:Stated General Appearance: WD/WN, no apparent distress Respiratory: chest non-tender, lungs clear, normal breath sounds Cardiovascular: normal peripheral pulses, regular rate, rhythm Gastrointestinal: non tender, soft Neurologic/Psychiatric: normal mood/affect, oriented x 3 Progress/Results/Core Measures Results/Orders My Orders Orders - LISY STANFORD DO Lidocaine 2% Viscous 15 Ml (Xylocaine Vi (06/06/19 10:00) Antacid Suspension (Mylanta Suspension (06/06/19 10:00) Medications Given in ED Current Medications Medications Dose Ordered Sig/Hitesh Route Start Time Stop Time Status Last Admin Dose Admin Al Hydrox/Mg Hydrox/Simethicone 30 ml ONCE ONCE PO 06/06/19 10:00 06/06/19 10:01 DC 06/06/19 10:08 30 ML Lidocaine HCl 15 ml ONCE ONCE PO 06/06/19 10:00 06/06/19 10:01 DC 06/06/19 10:08 15 ML Vital Signs/I&O 06/06/19 09:40 Temp 99.2 Pulse 62 Resp 18 B/P (MAP) 177/77 (110) Pulse Ox 95 Blood Pressure Mean: 110 Progress Progress Note : Progress Note I discussed with patient that there is no acute treatment for an ulcer. She was offered Carafate which she states she took this morning. Patient was instructed that I cannot do a complete medical screening she voices understanding. She will be discharged per her request Departure Impression Primary Impression: Peptic ulcer disease Disposition: HOME, SELF-CARE Condition: Stable Departure-Patient Inst. Referrals: WILLIS AKERS MD (PCP/Family) Primary Care Physician Patient Instructions: Peptic Ulcers (DC) Add. Discharge Instructions: Follow-up with primary care provider as soon as possible. Take current medication for peptic ulcer All discharge instructions reviewed with patient and/or family. Voiced understanding. LISY STANFORD DO Jun 06, 2019 10:15
--- OUTSIDE RECORDS SUMMARY | 2019-06-06 10:25 | XMS REPORT | Continuity of Care Document ---
Demographics Preferred Language Unknown Marital Status Unknown Denominational Affiliation Unknown Race Unknown Ethnic Group Unknown Author Organization Unknown Address Unknown Phone Unavailable Allergies Active Description Code Type Severity Reaction Onset Reported/Identified Relationship to Patient Clinical Status Yes KEFLEX KEFLEX SEVERE Yes PENICILLIN G POTASSIUM PENICILLIN G POTASSI SEVERE Yes KEFLEX SEVERE DERMATOLOGICAL - ÓSCAR Yes KEFLEX SEVERE SEVERE Yes PENICILLIN G POTASSIUM SEVERE DERMATOLOGICAL - ÓSCAR Yes PENICILLIN G POTASSIUM SEVERE SEVERE Yes Cephalexin Monohydrate [id number] Drug Allergy Unknown N/A 03/04/2017 Yes Penicillins [id number] Drug Allergy Unknown N/A 03/04/2017 Medications Medication [...] TIA, CEREBRAL INFARCTION 11/05/2011 Ot V58.69 OTH MED,LT,CURRENT USE 01/25/2012 Ot 780.4 DIZZINESS AND GIDDINESS [...] I10 ESSENTIAL (PRIMARY) HYPERTENSION 12/12/2016 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 Ot K29.00 ACUTE GASTRITIS WITHOUT BLEEDING 12/12/2016 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 Ot R10.13 EPIGASTRIC PAIN 12/12/2016 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 Ot 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 12/13/2016 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 Ot I10 ESSENTIAL (PRIMARY) HYPERTENSION 12/13/2016 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 Ot K29.00 ACUTE GASTRITIS WITHOUT BLEEDING 12/13/2016 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 Ot R10.13 EPIGASTRIC PAIN 12/13/2016 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 Ot 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 03/04/2017 LALO REYNA Ot I10 ESSENTIAL (PRIMARY) HYPERTENSION 03/04/2017 LALO REYNA Ot R23.3 SPONTANEOUS ECCHYMOSES 03/04/2017 LALO REYNA Ot 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 03/07/2017 LALO REYNA Ot I10 ESSENTIAL (PRIMARY) HYPERTENSION 03/07/2017 LALO REYNA Ot R23.3 SPONTANEOUS ECCHYMOSES 03/07/2017 LALO REYNA Ot 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 08/14/2017 KATIANA CHANDLER MD Ot E03.9 HYPOTHYROIDISM, UNSPECIFIED 08/14/2017 KATIANA CHANDLER MD Ot I10 ESSENTIAL (PRIMARY) HYPERTENSION 08/14/2017 KATIANA CHANDLER MD Ot K21.9 GASTRO-ESOPHAGEAL REFLUX DISEASE WITHOUT 08/14/2017 KATIANA CHANDLER MD Ot N39.0 URINARY TRACT INFECTION, SITE NOT SPECIF 08/14/2017 KATIANA CHANDLER MD Ot R10.9 UNSPECIFIED ABDOMINAL PAIN 08/14/2017 KATIANA CHANDLER MD Ot Z79.899 OTHER GROUP HOME (CURRENT) DRUG THERAPY 08/14/2017 KATIANA CHANDLER MD [...] 08/16/2017 KATIANA CHANDLER MD, Ot 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 08/16/2017 KATIANA CHANDLER MD Ot Z87.442 PERSONAL HISTORY OF URINARY CALCULI 08/24/2017 Karina Selby W 244.9 UNSPECIFIED HYPOTHYROIDISM 08/24/2017 Karina Selby W E03.9 HYPOTHYROIDISM, UNSPECIFIED 08/24/2017 Issa Selbya W 244.9 UNSPECIFIED HYPOTHYROIDISM 08/24/2017 Issa Selbya W E03.9 HYPOTHYROIDISM, UNSPECIFIED 01/16/2018 ANGEL KRUSE, BARBY Baker Ot 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, LEFT SIDE 02/20/2018 ANGEL KRUSE, BARBY Baker Ot 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, LEFT SIDE 03/17/2018 ANGEL KRUSE, BARBY Baker Ot 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, LEFT SIDE 03/18/2018 ANGEL KRUSE, BARBY Baker Ot 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, LEFT SIDE 03/19/2018 ANGEL KRUSE, BARBY Baker Ot 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, LEFT SIDE 03/29/2018 Issa Selbya W 244.9 UNSPECIFIED HYPOTHYROIDISM 03/29/2018 Issa Selbya W E03.9 HYPOTHYROIDISM, UNSPECIFIED 03/29/2018 Issa Selbya W 244.9 UNSPECIFIED HYPOTHYROIDISM 03/29/2018 Issa Selbya W E03.9 HYPOTHYROIDISM, UNSPECIFIED 04/01/2018 ANGEL KRUSE, BARBY Baker Ot 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, LEFT SIDE 04/02/2018 Karina Selby W 796.4 OTHER ABNORMAL CLINICAL FINDINGS 04/02/2018 Issa Selbya W 796.4 OTHER ABNORMAL CLINICAL FINDINGS 04/19/2018 ANGEL KRUSE, BARBY Baker Ot 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, LEFT SIDE 04/24/2018 BARBY ORTIZ MD Ot 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, LEFT SIDE 06/19/2018 Ot E03.9 HYPOTHYROIDISM, UNSPECIFIED 06/19/2018 Ot I10 ESSENTIAL (PRIMARY) HYPERTENSION 06/19/2018 Ot K21.9 GASTRO-ESOPHAGEAL REFLUX DISEASE WITHOUT 06/19/2018 Ot R55 SYNCOPE AND COLLAPSE 06/19/2018 Ot Z87.442 PERSONAL HISTORY OF URINARY CALCULI 06/19/2018 Ot Z88.0 ALLERGY STATUS TO PENICILLIN 06/19/2018 Ot Z88.1 ALLERGY STATUS TO OTHER ANTIBIOTIC AGENT 06/19/2018 Ot Z90.89 ACQUIRED ABSENCE OF OTHER ORGANS 06/25/2018 Ot E03.9 HYPOTHYROIDISM, UNSPECIFIED 06/25/2018 Ot I10 ESSENTIAL (PRIMARY) HYPERTENSION 06/25/2018 Ot K21.9 GASTRO-ESOPHAGEAL REFLUX DISEASE WITHOUT 06/25/2018 Ot R55 SYNCOPE AND COLLAPSE 06/25/2018 Ot Z87.442 PERSONAL HISTORY OF URINARY CALCULI 06/25/2018 Ot Z88.0 ALLERGY STATUS TO PENICILLIN 06/25/2018 Ot Z88.1 ALLERGY STATUS TO OTHER ANTIBIOTIC AGENT 06/25/2018 Ot Z90.89 ACQUIRED ABSENCE OF OTHER ORGANS 11/07/2018 Bal Karina W 558.9 OTHER AND UNSPECIFIED NONINFECTIOUS GASTROENTERITIS AND COLITIS 11/07/2018 Karina Selby K52.9 NONINFECTIVE GASTROENTERITIS AND COLITIS, UNSPECIFIED 11/07/2018 Karina Selby 558.9 OTHER AND UNSPECIFIED NONINFECTIOUS GASTROENTERITIS AND COLITIS 11/07/2018 Karina Selby K52.9 NONINFECTIVE GASTROENTERITIS AND COLITIS, UNSPECIFIED 01/30/2019 [...] URINARY TRACT INFECTION, SITE NOT SPECIFIED 01/30/2019 LEISURE, OLMAN W R07.89 OTHER CHEST PAIN 02/07/2019 HEIDI KRUSE, ROYA Thomas Ot E03.9 HYPOTHYROIDISM, UNSPECIFIED 02/07/2019 HEIDI KRUSE, ROYA Thomas Ot I10 ESSENTIAL (PRIMARY) HYPERTENSION 02/07/2019 ROYA GORDON MD Ot R07.9 CHEST PAIN, UNSPECIFIED 02/07/2019 ROYA GORDON MD Ot R55 SYNCOPE AND COLLAPSE 02/12/2019 ROYA GORDON MD Ot E03.9 HYPOTHYROIDISM, UNSPECIFIED 02/12/2019 HEIDI KRUSE, ROYA Thomas Ot I10 ESSENTIAL (PRIMARY) HYPERTENSION 02/12/2019 ROYA GORDON MD Ot R07.9 CHEST PAIN, UNSPECIFIED 02/12/2019 HEIDI KRUSE, ROYA Thomas Ot R55 SYNCOPE AND COLLAPSE 02/20/2019 Bal, Karina W 780.79 OTHER MALAISE AND FATIGUE 02/20/2019 Bal, Karina W 787.02 NAUSEA ALONE 02/20/2019 Bal, Karina W R11.0 NAUSEA 02/20/2019 Bal, Karina W R53.83 OTHER FATIGUE 02/20/2019 Bal, Karina W 780.79 OTHER MALAISE AND FATIGUE 02/20/2019 Bal, Karina W 787.02 NAUSEA ALONE 02/20/2019 Bal, Karina W R11.0 NAUSEA 02/20/2019 Bal, Karina W R53.83 OTHER FATIGUE 03/03/2019 ZEV DOKARINA Ot E03.9 HYPOTHYROIDISM, UNSPECIFIED 03/03/2019 ZEV ISSA FOXA Kimberly Ot E86.0 DEHYDRATION 03/03/2019 ZEV ISSA FOXA Kimberly Ot I10 ESSENTIAL (PRIMARY) HYPERTENSION 03/03/2019 ZEV ISSA FOXA K Ot I25.10 ATHSCL HEART DISEASE OF [place] CORONARY 03/03/2019 KARINA BROTHERS DO Ot K21.9 GASTRO-ESOPHAGEAL REFLUX DISEASE WITHOUT 03/03/2019 ZEV KARINA FOX Ot N39.0 URINARY TRACT INFECTION, SITE NOT SPECIF 03/03/2019 ZEV KARINA FOX Ot R11.0 NAUSEA 03/03/2019 KARINA BROTHERS DO Ot Z87.19 PERSONAL HISTORY OF OTHER DISEASES OF TH 03/03/2019 ZEV KARINA Ot Z87.442 PERSONAL HISTORY OF URINARY CALCULI 03/03[facility].0 ALLERGY STATUS TO PENICILLIN 03/03/2019 [facility] Z88.1 ALLERGY STATUS TO OTHER ANTIBIOTIC AGENT 03/03/2019 [facility] Ot Z90.49 ACQUIRED ABSENCE OF OTHER SPECIFIED PART 03/03/2019 ZEV KARINA Ot Z90.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 03/03/2019 [facility] Ot Z90.89 ACQUIRED ABSENCE OF OTHER ORGANS 03/03/2019 [facility] Ot Z95.9 PRESENCE OF CARDIAC AND VASCULAR IMPLANT 03/03/2019 [facility] Ot Z98.890 OTHER SPECIFIED POSTPROCEDURAL STATES 03/04/2019 HEIDI KRUSE, ROYA Thomas Ot E03.9 HYPOTHYROIDISM, UNSPECIFIED 03/04/2019 HEIDI KRUSE, ROYA Thomas Ot I10 ESSENTIAL (PRIMARY) HYPERTENSION 03/04/2019 HEIDI KRUSE, ROYA Thomas Ot R07.9 CHEST PAIN, UNSPECIFIED 03/04/2019 ROYA GORDON MD Ot R55 SYNCOPE AND COLLAPSE 03/06/2019 ZEV KARINA Ot E03.9 HYPOTHYROIDISM, UNSPECIFIED 03/06/2019 ZEV KARINA Ot E86.0 DEHYDRATION 03/06/2019 ZEV KARINA Ot I10 ESSENTIAL (PRIMARY) HYPERTENSION 03/06/2019 OLIVER KARINA Ot I25.10 ATHSCL HEART DISEASE OF [place] CORONARY 03/06/2019 ZEV KARINA Ot K21.9 GASTRO-ESOPHAGEAL REFLUX DISEASE WITHOUT 03/06/2019 ZEV KARINA Ot N39.0 URINARY TRACT INFECTION, SITE NOT SPECIF 03/06/2019 KARINA BROTHERS DO Ot R11.0 NAUSEA 03/06/2019 ZEV KARINA Ot Z87.19 PERSONAL HISTORY OF OTHER DISEASES OF 03/06/2019 ZEV KARINA Ot Z87.442 PERSONAL HISTORY OF URINARY CALCULI 03/06/2019 ZEV KARINA Ot Z88.0 ALLERGY STATUS TO PENICILLIN 03/06/2019 [facility] Ot Z88.1 ALLERGY STATUS TO OTHER ANTIBIOTIC AGENT 03/06/2019 KARINA BROTHERS DO Ot Z90.49 ACQUIRED ABSENCE OF OTHER SPECIFIED PART 03/06/2019 KARINA BROTHERS DO Ot Z90.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 03/06/2019 ZEV KARINA FOX Ot Z90.89 ACQUIRED ABSENCE OF OTHER ORGANS 03/06/2019 ZEV KARINA FOX Ot Z95.9 PRESENCE OF CARDIAC AND VASCULAR IMPLANT 03/06/2019 KARINA BROTHERS DO Ot Z98.890 OTHER SPECIFIED POSTPROCEDURAL STATES 03/16/2019 LOPEZ TRESSA FOX Ot E03.9 HYPOTHYROIDISM, UNSPECIFIED 03/16/2019 LOPEZ TRESSA FOX Ot I25.10 ATHSCL HEART DISEASE OF [place] CORONARY 03/16/2019 TRESSA LOPEZ DO Ot K21.0 GASTRO-ESOPHAGEAL REFLUX DISEASE WITH ES 03/16/2019 [facility] TRESSA FOX Ot K29.70 GASTRITIS, UNSPECIFIED, WITHOUT BLEEDING 03/16/2019 TRESSA LOPEZ DO Ot N17.9 ACUTE KIDNEY FAILURE, UNSPECIFIED 03/16/2019 LOPEZ TRESSA FOX Ot R11.2 NAUSEA WITH VOMITING, UNSPECIFIED 03/16/2019 LOPEZ TRESSA FOX Ot R79.89 OTHER SPECIFIED ABNORMAL FINDINGS OF BLO 03/16/2019 TRESSA LOPEZ DO Ot Z87.19 PERSONAL HISTORY OF OTHER DISEASES OF TH 03/16/2019 LOPEZ TRESSA FOX Ot Z87.442 PERSONAL HISTORY OF URINARY CALCULI 03/16/2019 TRESSA LOPEZ DO Ot Z88.0 ALLERGY STATUS TO PENICILLIN 03/16/2019 TRESSA LOPEZ DO Ot Z88.1 ALLERGY STATUS TO OTHER ANTIBIOTIC AGENT 03/16/2019 [facility] TRESSA FOX Ot Z90.89 ACQUIRED ABSENCE OF OTHER ORGANS 03/16/2019 TRESSA LOPEZ DO Ot Z95.5 PRESENCE OF CORONARY ANGIOPLASTY IMPLANT 03/16/2019 TRESSA LOPEZ DO Ot Z98.890 OTHER SPECIFIED POSTPROCEDURAL STATES 05/22/2019 EDISON KRUSE, RENEE He Ot Z48.812 ENCNTR FOR SURGICAL AFTCR FOLLOWING SURG 05/22/2019 EDISON KRUSE, RENEE He Ot Z95.5 PRESENCE OF CORONARY ANGIOPLASTY IMPLANT 05/26/2019 Bal, Karina W 599.0 URINARY TRACT INFECTION, SITE NOT SPECIFIED 05/26/2019 Bal, Karina W 789.00 ABDOMINAL PAIN, UNSPECIFIED SITE 05/26/2019 Bal, Karina W 989.5 TOXIC EFFECT OF VENOM 05/26/2019 Bal, Karina W N39.0 URINARY TRACT INFECTION, SITE NOT SPECIFIED 05/26/2019 Bal, Karina W R10.9 UNSPECIFIED ABDOMINAL PAIN 05/26/2019 Bal, Karina W S60.229 CONTUSION OF UNSPECIFIED HAND 05/26/2019 Bal, Karina W 789.00 ABDOMINAL PAIN, UNSPECIFIED SITE 05/26/2019 Bal, Karina W R10.9 UNSPECIFIED ABDOMINAL PAIN 05/26/2019 Bal, Karina W 599.0 URINARY TRACT INFECTION, SITE NOT SPECIFIED 05/26/2019 Bal, Karina W 789.00 ABDOMINAL PAIN, UNSPECIFIED SITE 05/26/2019 Bal, Karina W 989.5 TOXIC EFFECT OF VENOM 05/26/2019 Bal, Karina W N39.0 URINARY TRACT INFECTION, SITE NOT SPECIFIED 05/26/2019 Bal, Karina W R10.9 UNSPECIFIED ABDOMINAL PAIN 05/26/2019 Bal, Karina W S60.229 CONTUSION OF UNSPECIFIED HAND 05/26/2019 Bal, Karina W 599.0 URINARY TRACT INFECTION, SITE NOT SPECIFIED 05/26/2019 Bal, Karina W 789.00 ABDOMINAL PAIN, UNSPECIFIED SITE 05/26/2019 Bal, Karina W 989.5 TOXIC EFFECT OF VENOM 05/26/2019 Bal, Karina W N39.0 URINARY TRACT INFECTION, SITE NOT SPECIFIED 05/26/2019 Bal, Karina W R10.9 UNSPECIFIED ABDOMINAL PAIN 05/26/2019 Bal, Karina W S60.229 CONTUSION OF UNSPECIFIED HAND 05/26/2019 Bal, Karina W 599.0 URINARY TRACT INFECTION, SITE NOT SPECIFIED 05/26/2019 Bal, Karina W 789.00 ABDOMINAL PAIN, UNSPECIFIED SITE 05/26/2019 Bal, Karina W 989.5 TOXIC EFFECT OF VENOM 05/26/2019 Bal, Karina W N39.0 URINARY TRACT INFECTION, SITE NOT SPECIFIED 05/26/2019 Bal, Karina W R10.9 UNSPECIFIED ABDOMINAL PAIN 05/26/2019 Karina Selby W S60.229 CONTUSION OF UNSPECIFIED HAND 05/28/2019 AUNDREA GARCES MD Ot E03.9 HYPOTHYROIDISM, UNSPECIFIED 05/28/2019 AUNDREA GARCES MD Ot I12.9 HYPERTENSIVE CHRONIC KIDNEY DISEASE W ST 05/28/2019 AUNDREA GARCES MD Ot I25.10 ATHSCL HEART DISEASE OF [place] CORONARY 05/28/2019 AUNDREA GARCES MD Ot K21.9 GASTRO-ESOPHAGEAL REFLUX DISEASE WITHOUT 05/28/2019 AUNDREA GARCES MD, Ot N18.9 CHRONIC KIDNEY DISEASE, UNSPECIFIED 05/28/2019 AUNDREA GARCES MD Ot N39.0 URINARY TRACT INFECTION, SITE NOT SPECIF 05/28/2019 AUNDREA GARCES MD Ot R55 SYNCOPE AND COLLAPSE 05/28/2019 AUNDREA GARCES MD Ot Z87.442 PERSONAL HISTORY OF URINARY CALCULI 05/28/2019 AUNDREA GARCES MD, Ot Z88.0 ALLERGY STATUS TO PENICILLIN 05/28/2019 AUNDREA GARCES MD Ot Z88.1 ALLERGY STATUS TO OTHER ANTIBIOTIC AGENT 05/28/2019 AUNDREA GARCES MD Ot Z90.89 ACQUIRED ABSENCE OF OTHER ORGANS 05/28/2019 AUNDREA GARCES MD Ot Z95.5 PRESENCE OF CORONARY ANGIOPLASTY IMPLANT 05/28/2019 AUNDREA GARCES MD Ot E03.9 HYPOTHYROIDISM, UNSPECIFIED 05/28/2019 AUNDREA GARCES MD Ot I12.9 HYPERTENSIVE CHRONIC KIDNEY DISEASE W ST 05/28/2019 AUNDREA GARCES MD Ot I25.10 ATHSCL HEART DISEASE OF [place] CORONARY 05/28/2019 AUNDREA GARCES MD Ot K21.9 GASTRO-ESOPHAGEAL REFLUX DISEASE WITHOUT 05/28/2019 AUNDREA GARCES MD Ot N18.9 CHRONIC KIDNEY DISEASE, UNSPECIFIED 05/28/2019 AUNDREA GARCES MD Ot N39.0 URINARY TRACT INFECTION, SITE NOT SPECIF 05/28/2019 AUNDREA GARCES MD, Ot R55 SYNCOPE AND COLLAPSE 05/28/2019 AUNDREA GARCES MD, Ot Z87.442 PERSONAL HISTORY OF URINARY CALCULI 05/28/2019 AUNDREA GARCES MD, Ot Z88.0 ALLERGY STATUS TO PENICILLIN 05/28/2019 AUNDREA GARCES MD, Ot Z88.1 ALLERGY STATUS TO OTHER ANTIBIOTIC AGENT 05/28/2019 AUNDREA GARCES MD, Ot Z90.89 ACQUIRED ABSENCE OF OTHER ORGANS 05/28/2019 AUNDREA GARCES MD, Ot Z95.5 PRESENCE OF CORONARY ANGIOPLASTY IMPLANT Procedures There is no data. Results Test [...] Automated erythrocyte mean corpuscular hemoglobin concentration measurement (mass/volume) 35 g/dL 32-36 Automated erythrocyte distribution width ratio 14.0 % 10.0- 14.5 Automated blood platelet count (count/volume) 336 10*3/uL [...] Blood monocytes automated count (number/volume) 1.1 10*3 0.0- 1.0 Automated eosinophil count 0.5 10*3/uL 0.0-0.3 Automated blood basophil count (count/volume) 0.0 10*3/uL 0.0-0.1 Serum or plasma amylase measurement (enzymatic activity/volume) - 12/12/16 13:14 Serum or plasma amylase measurement (enzymatic activity/volume) 68 U/L 25-125 Lipase - 12/12/16 13:14 Lipase 53 [...] 5-8.5 Urine-Protein Negative Negative Urine-RBC 2-5/HPF Urine-Specific [place] 1.020 1.000-1.030 Urine-WBC Negative Urobilinogen 0.2 E.U./dL [...] Automated erythrocyte mean corpuscular hemoglobin concentration measurement (mass/volume) 34 g/dL 32-36 Automated erythrocyte distribution width ratio 14.2 % 10.0- 14.5 Automated blood platelet count (count/volume) 380 10*3/uL [...] Blood monocytes automated count (number/volume) 2.0 10*3 0.0- 1.0 Automated eosinophil count 0.4 10*3/uL 0.0-0.3 Automated [...] Serum or plasma aspartate aminotransferase measurement (enzymatic activity/volume) 55 U/L 5-34 Serum or plasma alanine aminotransferase measurement (enzymatic activity/volume) 39 U/L 0-55 Serum or plasma protein measurement (mass/volume) 7.4 g/dL 6.4-8.2 Serum or plasma albumin measurement (mass/volume) 3.8 g/dL 3.2-4.5 Serum or plasma C reactive protein measurement (mass/volume) - 03/04/17 17:10 Serum or plasma C reactive protein measurement (mass/volume) 1.01 mg/dL 0.00-0.50 Blood manual differential performed detection - [...] gravity of urine by test strip 1.010 1.016-1.022 Urine protein assay by test strip, semi-quantitative [...] sediment leukocyte count by microscopy (number/high power field) > [HPF] NRG Bacteria detection in urine sediment by light microscopy FEW NRG Crystals detection in urine sediment by light microscopy NONE NRG Casts detection in urine sediment by light microscopy NONE NRG Mucus detection in urine sediment by light microscopy NEGATIVE NRG Complete urinalysis with reflex to culture YES NRG Bacterial urine culture - 08/14/17 10:15 Bacterial urine culture [id number] NRG COLONY COUNT >100,000/ML NRG FTX;REPORTABLE SENSITIVITY REPORTED AT 0738, 08-16-17 NR Bacterial susceptibility panel - 08/14/17 10:15 Gentamicin susceptibility test by minimum inhibitory concentration <= NRG Trimethoprim/sulfamethoxazole susceptibility test by minimum inhibitoryconcentration >= NRG Ampicillin susceptibility test by minimum inhibitory concentration 16 NRG Tobramycin susceptibility test by minimum inhibitory concentration <= NRG Cefazolin susceptibility test by minimum inhibitory concentration <= NRG Ceftriaxone susceptibility test by minimum inhibitory concentration <= NRG Ampicillin/sulbactam susceptibility test by minimum inhibitory concentration I NRG Piperacillin/tazobactam susceptibility test by minimum inhibitory concentration <= NRG Ciprofloxacin susceptibility test by minimum inhibitory concentration >= NRG Meropenem susceptibility test by minimum inhibitory concentration <= NRG Nitrofurantoin susceptibility test by minimum inhibitory concentration <= NRG Aztreonam susceptibility test by minimum inhibitory concentration <= NRG Extended spectrum beta lactamase (ESBL) producing bacteria susceptibility test by minimum inhibitory concentration - NR Complete blood count (CBC) with automated white [...] Automated erythrocyte mean corpuscular hemoglobin concentration measurement (mass/volume) 34 g/dL 32-36 Automated erythrocyte distribution width ratio 14.2 % 10.0- 14.5 Automated blood platelet count (count/volume) 430 10*3/uL [...] Blood monocytes automated count (number/volume) 1.7 10*3 0.0- 1.0 Automated eosinophil count 0.6 10*3/uL 0.0-0.3 Automated [...] Serum or plasma aspartate aminotransferase measurement (enzymatic activity/volume) 23 U/L 5-34 Serum or plasma alanine aminotransferase measurement (enzymatic activity/volume) 17 U/L 0-55 Serum or plasma protein [...] PRELIM CULTURE RESULTS 20,000-50,000 Gram Negative Lactose Collar Padder Blindstitch VINAY / ID to Follow CULTURE SOURCE [...] 34.0 g/dL 32.0-36.0 MCV 89.3 fL 80.0-97.0 [place]% 10.9 % 0.0-12.0 MPV 9.4 fL 7.4-10.0 [place]% 47.2 % 37.0-80.0 Plt 417 K/uL 150-400 RBC 4.58 M/uL 3.60-5.00 RDW 13.3 % 11.6-14.8 WBC 11.25 K/uL 5.00-10.00 [place] 5.30 K/uL 2.00-6.90 [place] 1.2 K/uL 0.0-0.9 Baso 0.1 K/uL 0.0-0.2 Troponin I - 01/30/19 11:48 Troponin <0.020 ng/mL 0.0-0.4 Complete urinalysis with reflex to culture - 03/03/19 19:50 Urine color determination YELLOW NRG Urine clarity determination SL CLOUDY NRG Urine pH measurement by test strip 5 5-9 Specific gravity of urine by test strip 1.020 1.016-1.022 Urine protein assay by test strip, semi-quantitative NEGATIVE NEGATIVE Urine glucose detection by automated test strip NEGATIVE NEGATIVE Erythrocytes detection in urine sediment by light microscopy 2+ NEGATIVE Urine ketones detection by automated test strip NEGATIVE NEGATIVE Urine nitrite detection by test strip NEGATIVE NEGATIVE Urine total bilirubin detection by test strip NEGATIVE NEGATIVE Urine urobilinogen measurement by automated test strip (mass/volume) NORMAL NORMAL Urine leukocyte esterase detection by dipstick 2+ NEGATIVE Automated urine sediment erythrocyte count by microscopy (number/high power field) [HPF] NRG Automated urine sediment leukocyte count by microscopy (number/high power field) [HPF] NRG Bacteria detection in urine sediment by light microscopy TRACE NRG Crystals detection in urine sediment by light microscopy NONE NRG Casts detection in urine sediment by light microscopy NONE NRG Mucus detection in urine sediment by light microscopy NEGATIVE NRG Complete urinalysis with reflex to culture YES NRG Bacterial urine culture - 03/03/19 19:50 Bacterial urine culture 3 OR MORE NRG COLONY COUNT 50,000 CFU/ML NRG FTX;REPORTABLE GRAM POSITIVES, SUGGESTING PROBABLE NRG FREE TEXT ENTRY 2 COLLECTION CONTAMINATION WITH SKIN NRG FREE TEXT ENTRY 3 GRACIELA, NO SUSCEPTIBILITY PERFORMED NRG Complete blood count (CBC) with automated white blood cell (WBC) differential - 03/03/19 20:01 Blood leukocytes automated count (number/volume) 19.0 10*3/uL 4.3-11.0 Blood erythrocytes automated count (number/volume) 4.70 10*6/uL 4.35-5.85 Venous blood hemoglobin measurement (mass/volume) 13.9 g/dL 11.5-16.0 Blood hematocrit (volume fraction) 41 % 35-52 Automated erythrocyte mean corpuscular volume 88 [foz_us] 80-99 Automated erythrocyte mean corpuscular hemoglobin (mass per erythrocyte) 30 pg 25-34 Automated erythrocyte mean corpuscular hemoglobin concentration measurement (mass/volume) 34 g/dL 32-36 Automated erythrocyte distribution width ratio 14.4 % 10.0- 14.5 Automated blood platelet count (count/volume) 401 10*3/uL 130-400 Automated blood platelet mean volume measurement 9.6 [foz_us] 7.4-10.4 Automated blood neutrophils/100 leukocytes 71 % 42-75 Automated blood lymphocytes/100 leukocytes 16 % 12-44 Blood monocytes/100 leukocytes 11 % 0-12 Automated blood eosinophils/100 leukocytes 2 % 0-10 Automated blood basophils/100 leukocytes 0 % 0-10 Blood neutrophils automated count (number/volume) 13.6 10*3 1.8-7.8 Blood lymphocytes automated count (number/volume) 3.0 10*3 1.0-4.0 Blood monocytes automated count (number/volume) 2.0 10*3 0.0- 1.0 Automated eosinophil count 0.4 10*3/uL 0.0-0.3 Automated blood basophil count (count/volume) 0.0 10*3/uL 0.0-0.1 Comprehensive metabolic panel - 03/03/19 20:01 Serum or plasma sodium measurement (moles/volume) 137 mmol/L 135-145 Serum or plasma potassium measurement (moles/volume) 4.3 mmol/L 3.6-5.0 Serum or plasma chloride measurement (moles/volume) 112 mmol/L 98-107 Carbon dioxide 13 mmol/L 21-32 Serum or plasma anion gap determination (moles/volume) 12 mmol/L 5-14 Serum or plasma urea nitrogen measurement (mass/volume) 43 mg/dL 7-18 Serum or plasma creatinine measurement (mass/volume) 1.26 mg/dL 0.60-1.30 Serum or plasma urea nitrogen/creatinine mass ratio 34 NRG Serum or plasma creatinine measurement with calculation of estimated glomerular filtration rate 40 NRG Serum or plasma glucose measurement (mass/volume) 113 mg/dL 70-105 Serum or plasma calcium measurement (mass/volume) 9.7 mg/dL 8.5-10.1 Serum or plasma total bilirubin measurement (mass/volume) 0.3 mg/dL 0.1-1.0 Serum or plasma alkaline phosphatase measurement (enzymatic activity/volume) 68 U/L 40-136 Serum or plasma aspartate aminotransferase measurement (enzymatic activity/volume) 23 U/L 5-34 Serum or plasma alanine aminotransferase measurement (enzymatic activity/volume) 20 U/L 0-55 Serum or plasma protein measurement (mass/volume) 7.8 g/dL 6.4-8.2 Serum or plasma albumin measurement (mass/volume) 4.0 g/dL 3.2-4.5 CALCIUM CORRECTED 9.7 mg/dL 8.5-10.1 Magnesium - 03/03/19 20:01 Magnesium 2.0 mg/dL 1.8-2.4 Serum or plasma amylase measurement (enzymatic activity/volume) - 03/03/19 20:01 Serum or plasma amylase measurement (enzymatic activity/volume) 92 U/L 25-125 Lipase - 03/03/19 20:01 Lipase 61 U/L 8-78 Blood manual differential performed detection - 03/03/19 20:01 Blood monocytes/100 leukocytes 7 % NRG Manual blood segmented neutrophils/100 leukocytes 70 % NRG Blood band neutrophils/100 leukocytes 0 % NRG Manual blood lymphocytes/100 leukocytes 20 % NRG Manual eosinophils/100 leukocytes in nose 3 % NRG Manual blood basophils/100 leukocytes 0 % NRG Blood erythrocyte morphology finding identification NORMAL NRG Cardiac Panel - 03/07/19 12:17 CK 68 U/L 26-174 CK-MB 1.5 ng/ml 0.0-9.2 Myoglobin 70.0 ng/ml 1.6-106.0 Troponin <0.020 ng/mL 0.0-0.4 Blood CBC with ordered manual differential panel - 03/16/19 10:30 Blood leukocytes automated count (number/volume) 12.8 10*3/uL 4.3-11.0 Blood erythrocytes automated count (number/volume) 4.01 10*6/uL 4.35-5.85 Venous blood hemoglobin measurement (mass/volume) 12.1 g/dL 11.5-16.0 Blood hematocrit (volume fraction) 36 % 35-52 Automated erythrocyte mean corpuscular volume 90 [foz_us] 80-99 Automated erythrocyte mean corpuscular hemoglobin (mass per erythrocyte) 30 pg 25-34 Automated erythrocyte mean corpuscular hemoglobin concentration measurement (mass/volume) 30 g/dL 32-36 Automated erythrocyte distribution width ratio 13.6 % 10.0- 14.5 Automated blood platelet count (count/volume) 398 10*3/uL 130-400 Automated blood platelet mean volume measurement 9.7 [foz_us] 7.4-10.4 Automated blood neutrophils/100 leukocytes 62 % 42-75 Automated blood lymphocytes/100 leukocytes 24 % 12-44 Blood monocytes/100 leukocytes 6 % NRG Automated blood eosinophils/100 leukocytes 6 % 0-10 Automated blood basophils/100 leukocytes 0 % 0-10 Blood neutrophils automated count (number/volume) 7.9 10*3 1.8-7.8 Blood lymphocytes automated count (number/volume) 3.1 10*3 1.0-4.0 Blood monocytes automated count (number/volume) 0.9 10*3 0.0- 1.0 Automated eosinophil count 0.8 10*3/uL 0.0-0.3 Automated blood basophil count (count/volume) 0.1 10*3/uL 0.0-0.1 Manual blood segmented neutrophils/100 leukocytes 63 % NRG Blood band neutrophils/100 leukocytes 2 % NRG Manual blood lymphocytes/100 leukocytes 20 % NRG Manual eosinophils/100 leukocytes in nose 9 % NRG Manual blood basophils/100 leukocytes 0 % NRG Blood erythrocyte morphology finding identification NORMAL NR Comprehensive metabolic panel - 03/16/19 10:30 Serum or plasma sodium measurement (moles/volume) 142 mmol/L 135-145 Serum or plasma potassium measurement (moles/volume) 3.6 mmol/L 3.6-5.0 Serum or plasma chloride measurement (moles/volume) 104 mmol/L 98-107 Carbon dioxide 18 mmol/L 21-32 Serum or plasma anion gap determination (moles/volume) 20 mmol/L 5-14 Serum or plasma urea nitrogen measurement (mass/volume) 25 mg/dL 7-18 Serum or plasma creatinine measurement (mass/volume) 1.53 mg/dL 0.60-1.30 Serum or plasma urea nitrogen/creatinine mass ratio 16 NRG Serum or plasma creatinine measurement with calculation of estimated glomerular filtration rate 32 NRG Serum or plasma glucose measurement (mass/volume) 105 mg/dL 70-105 Serum or plasma calcium measurement (mass/volume) 9.6 mg/dL 8.5-10.1 Serum or plasma total bilirubin measurement (mass/volume) 0.6 mg/dL 0.1-1.0 Serum or plasma alkaline phosphatase measurement (enzymatic activity/volume) 77 U/L 40-136 Serum or plasma aspartate aminotransferase measurement (enzymatic activity/volume) 21 U/L 5-34 Serum or plasma alanine aminotransferase measurement (enzymatic activity/volume) 17 U/L 0-55 Serum or plasma protein measurement (mass/volume) 7.1 g/dL 6.4-8.2 Serum or plasma albumin measurement (mass/volume) 3.7 g/dL 3.2-4.5 CALCIUM CORRECTED 9.8 mg/dL 8.5-10.1 TROPONIN T - 03/16/19 10:30 TROPONIN T 177 % <=10 Lipase - 05/19/19 10:30 Lipase 38 U/L 8-78 HH - 04/25/19 15:18 Hct 39.2 % 36.0-46.0 Hgb 13.0 g/dL 13.0-15.0 Comprehensive Metabolic Panel - 04/28/19 11:42 Albumin 3.8 g/dL 3.6-5.1 ALP 146 U/L 35-130 ALT 60 U/L 6-45 Anion Gap 15 6-14 AST 48 U/L 2-40 BUN 31 mg/dL 5-25 Calcium 9.9 mg/dL 8.3-10.4 Chloride 104 mmol/L 95-114 CO2 23 mEq/L 22-33 Creat 1.48 mg/dL 0.50-1.50 eGFR 33 mL/min/1.73m2 >59 Globulin 3.0 g/dL 2.3-3.5 Glucose 86 mg/dL 70-110 Osmo 289 280-295 Potassium 4.6 mmol/L 3.5-5.3 Sodium 137 mmol/L 134-148 TBil 0.5 mg/dL 0.2-1.2 TP 6.8 g/dL 6.0-8.3 Complete blood count (CBC) with automated white blood cell (WBC) differential - 05/23/19 13:35 Blood leukocytes automated count (number/volume) 17.1 10*3/uL 4.3-11.0 Blood erythrocytes automated count (number/volume) 4.21 10*6/uL 4.35-5.85 Venous blood hemoglobin measurement (mass/volume) 12.5 g/dL 11.5-16.0 Blood hematocrit (volume fraction) 37 % 35-52 Automated erythrocyte mean corpuscular volume 88 [foz_us] 80-99 Automated erythrocyte mean corpuscular hemoglobin (mass per erythrocyte) 30 pg 25-34 Automated erythrocyte mean corpuscular hemoglobin concentration measurement (mass/volume) 34 g/dL 32-36 Automated erythrocyte distribution width ratio 14.2 % 10.0- 14.5 Automated blood platelet count (count/volume) 344 10*3/uL 130-400 Automated blood platelet mean volume measurement 9.9 [foz_us] 7.4-10.4 Automated blood neutrophils/100 leukocytes 52 % 42-75 Automated blood lymphocytes/100 leukocytes 34 % 12-44 Blood monocytes/100 leukocytes 9 % 0-12 Automated blood eosinophils/100 leukocytes 4 % 0-10 Automated blood basophils/100 leukocytes 0 % 0-10 Blood neutrophils automated count (number/volume) 8.9 10*3 1.8-7.8 Blood lymphocytes automated count (number/volume) 5.9 10*3 1.0-4.0 Blood monocytes automated count (number/volume) 1.6 10*3 0.0- 1.0 Automated eosinophil count 0.7 10*3/uL 0.0-0.3 Automated blood basophil count (count/volume) 0.1 10*3/uL 0.0-0.1 Comprehensive metabolic panel - 05/23/19 13:35 Serum or plasma sodium measurement (moles/volume) 135 mmol/L 135-145 Serum or plasma potassium measurement (moles/volume) 3.9 mmol/L 3.6-5.0 Serum or plasma chloride measurement (moles/volume) 104 mmol/L 98-107 Carbon dioxide 18 mmol/L 21-32 Serum or plasma anion gap determination (moles/volume) 13 mmol/L 5-14 Serum or plasma urea nitrogen measurement (mass/volume) 44 mg/dL 7-18 Serum or plasma creatinine measurement (mass/volume) 1.31 mg/dL 0.60-1.30 Serum or plasma urea nitrogen/creatinine mass ratio 34 NRG Serum or plasma creatinine measurement with calculation of estimated glomerular filtration rate 38 NRG Serum or plasma glucose measurement (mass/volume) 101 mg/dL 70-105 Serum or plasma calcium measurement (mass/volume) 9.5 mg/dL 8.5-10.1 Serum or plasma total bilirubin measurement (mass/volume) 0.4 mg/dL 0.1-1.0 Serum or plasma alkaline phosphatase measurement (enzymatic activity/volume) 76 U/L 40-136 Serum or plasma aspartate aminotransferase measurement (enzymatic activity/volume) 20 U/L 5-34 Serum or plasma alanine aminotransferase measurement (enzymatic activity/volume) 14 U/L 0-55 Serum or plasma protein measurement (mass/volume) 6.8 g/dL 6.4-8.2 Serum or plasma albumin measurement (mass/volume) 3.6 g/dL 3.2-4.5 CALCIUM CORRECTED 9.8 mg/dL 8.5-10.1 Magnesium - 05/23/19 13:35 Magnesium 2.1 mg/dL 1.8-2.4 Serum or plasma troponin i.cardiac measurement (mass/volume) - 05/23/19 13:35 Serum or plasma troponin i.cardiac measurement (mass/volume) < ng/mL <0.028 Manual absolute plasma cell count - 05/23/19 13:35 Blood monocytes/100 leukocytes 9 % NRG Manual blood segmented neutrophils/100 leukocytes 48 % NRG Manual blood lymphocytes/100 leukocytes 39 % NRG Manual eosinophils/100 leukocytes in nose 4 % NRG Blood erythrocyte morphology finding identification NORMAL NRG Serum or plasma lithium measurement (moles/volume) - 05/23/19 13:35 BNP PT 51.3 pg/mL <100.0 Complete urinalysis with reflex to culture - 05/23/19 15:56 Urine color determination YELLOW NRG Urine clarity determination CLEAR NRG Urine pH measurement by test strip 5 5-9 Specific gravity of urine by test strip 1.010 1.016-1.022 Urine protein assay by test strip, semi-quantitative 1+ NEGATIVE Urine glucose detection by automated test strip NEGATIVE NEGATIVE Erythrocytes detection in urine sediment by light microscopy 1+ NEGATIVE Urine ketones detection by automated test [...] sediment leukocyte count by microscopy (number/high power field) [HPF] NRG Bacteria detection in urine sediment by light microscopy FEW NRG Squamous epithelial cells detection in urine sediment by light microscopy 0-2 NRG Crystals detection in urine sediment by light microscopy NONE NRG Casts detection in urine sediment by light microscopy NONE NRG Mucus detection in urine sediment by light microscopy NEGATIVE NRG Complete urinalysis with reflex to culture YES NRG Renal epithelial cells detection in urine sediment by light microscopy 2-5 NRG Bacterial urine culture - 05/23/19 15:56 Bacterial urine culture NG NRG Francisella tularensis Abs - 05/26/19 16:16 Francisella tularensis IgG See below: Negative Francisella tularensis IgM Negative Negative Ehrlichia Ab Panel - 05/26/19 16:16 E. chaffeensis (HME) IgG Titer Negative Neg:<1:64 E. chaffeensis (HME) IgM Titer Negative Neg:<1:20 HGE IgG Titer Negative Neg:<1:64 HGE IgM Titer Negative Neg:<1:20 Comprehensive Metabolic Panel - 05/26/19 16:16 Albumin 4.1 g/dL 3.6-5.1 ALP 79 U/L 35-130 ALT 20 U/L 6-45 Anion Gap 15 6-14 AST 26 U/L 2-40 BUN 32 mg/dL 5-25 Calcium 9.9 mg/dL 8.3-10.4 Chloride 105 mmol/L 95-114 CO2 22 mEq/L 22-33 Creat 1.33 mg/dL 0.50-1.50 eGFR 38 mL/min/1.73m2 >59 Globulin 3.2 g/dL 2.3-3.5 Glucose 98 mg/dL 70-110 Osmo 292 280-295 Potassium 4.0 mmol/L 3.5-5.3 Sodium 138 mmol/L 134-148 TBil 0.5 mg/dL 0.2-1.2 TP 7.3 g/dL 6.0-8.3 Rikki Mtn Spotted Fev,IgG - 05/26/19 16:16 RMSF, IGG, EIA NEGATIVE NEGATIVE Rikki Ctn Spotted Fever, IgM - 05/26/19 16:16 RIKKI ALN SPOTTED FEVER, IGM 0.41 INDEX 0.00-0.89 Ehrlichia Ab Panel - 05/26/19 16:16 E. CHAFFEENSIS (HME) IGG TITER NEGATIVE NEG:<1:64 E. CHAFFEENSIS (HME) IGM TITER NEGATIVE NEG:<1:20 HGE IGG TITER NEGATIVE NEG:<1:64 HGE IGM TITER NEGATIVE NEG:<1:20 Francisella tularensis Antibody IFA - 05/26/19 16:16 FRANCISELLA TULARENSIS IGG SEE BELOW: NEGATIVE FRANCISELLA TULARENSIS IGM NEGATIVE NEGATIVE Lyme Ab/Western Blot Reflex - 05/26/19 16:16 Lyme IgG/IgM Ab <0.91 ISR 0.00-0.90 Lyme Disease Ab, Quant, IgM <0.80 index 0.00-0.79 Rikki Ctn Spotted Fev, IgG, Qn - 05/26/19 16:16 RMSF, IgG, EIA Negative Negative Rikki Ctn Spotted Fever, IgM - 05/26/19 16:16 Rikki Ctn Spotted Fever, IgM 0.41 index 0.00-0.89 Encounters ACCT No. Visit Date/Time Discharge Status Pt. Type Provider Facility Loc./Unit Complaint [id number] 06/03/2019 16:09:00 Document Registration [id number] 05/29/2019 15:09:00 Document Registration [id number] 06/02/2019 09:55:00 06/02/2019 23:59:59 CLS Outpatient EDISON KRUSE, RENEE He [facility] CR PTCA [id number] 05/23/2019 14:41:00 05/23/2019 18:05:00 DIS Outpatient DEZ KRUSE, AUNDREA Hoover [facility] ER SYNCOPE [id number] 03/16/2019 10:20:00 03/16/2019 14:25:00 DIS Emergency JOHN DO, TRESSA Herrera [facility] ER FS NAUSEA,VOMITING,ABD PAIN [id number] 03/12/2019 14:00:00 03/12/2019 23:59:59 CLS Preadmit ROYA GORDON MD [facility] CATH CHEST PAIN,ABN STRESS TEST,HTN,HLP [id number] 03/03/2019 19:12:00 03/03/2019 21:44:00 DIS Emergency KARINA BROTHERS DO K [facility] ER NAUSEA/UNABLE TO VOMIT [id number] 02/12/2019 10:50:00 02/12/2019 23:59:59 CLS Outpatient ROYA GORDON MD [facility] CARD HTN, SYNCOPE, CHEST PAIN IN ADULT [id number] 02/06/2019 10:44:00 02/06/2019 23:59:59 CLS Outpatient ROYA GORDON MD [facility] CARD HTN, SYNCOPE, CHEST PAIN IN ADULT [id number] 04/10/2018 14:51:00 04/24/2018 15:16:00 DIS Outpatient BARBY ORTIZ MD [facility] REHAB SCIATICA [id number] 03/14/2018 13:36:00 03/17/2018 00:01:00 DIS Outpatient BARBY ORTIZ MD [facility] REHAB SCIATICA [id number] 08/14/2017 09:57:00 08/14/2017 12:27:00 DIS Emergency KATIANA CHANDLER MD [facility] ER LOWER ABD PAIN [id number] 03/04/2017 15:16:00 03/04/2017 18:42:00 DIS Emergency LALO REYNA [facility] ER L ARM REDNESS/DISCOLORATION/NAUSEA/HEADACHE [id number] 12/12/2016 12:23:00 12/12/2016 13:49:00 DIS Emergency 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 [facility] ER NAUSEA [id number] 03/06/2016 14:56:00 03/06/2016 23:59:59 CLS Preadmit GARCÍA RANDLE [facility] ONC [id number] 02/17/2015 18:47:00 02/17/2015 21:35:00 DIS Emergency GIL KYLE DO [facility] ER ABD, R SIDE PAIN,NAUSEA [id number] 02/02/2015 15:21:00 02/02/2015 15:21:00 CAN Preadmit SUBHASH PATIÑO MD [facility] LAB [id number] 06/19/2018 17:02:00 Document Registration [id number] 05/21/2012 13:00:00 Document Registration [id number] 01/05/2012 11:22:00 Document Registration [id number] 11/05/2011 07:19:00 Document Registration [id number] 05/26/2019 16:15:00 05/26/2019 23:59:00 DIS Outpatient Karina Selby [id number] 05/26/2019 16:11:00 05/26/2019 23:59:00 DIS Outpatient Karina Selby [id number] 04/28/2019 11:38:00 04/28/2019 23:59:00 DIS Outpatient Karina Selby [id number] 04/25/2019 15:08:00 04/25/2019 23:59:00 DIS Outpatient Karina Selby [id number] 03/07/2019 12:13:00 03/07/2019 23:59:00 DIS Outpatient BalKarina [id number] 02/27/2019 09:24:00 02/27/2019 23:59:00 DIS Outpatient Bal, Karina [id number] 02/20/2019 09:56:00 02/20/2019 23:59:00 DIS Outpatient Bal, Karina [id number] 01/30/2019 09:31:00 01/30/2019 13:05:00 DIS Outpatient [facility] [id number] 01/16/2019 10:14:00 01/16/2019 23:59:00 DIS Outpatient BalKarina brown [id number] 11/07/2018 10:21:00 11/07/2018 23:59:00 DIS Outpatient Bal, Karina [id number] 06/28/2018 15:17:00 06/28/2018 23:59:00 DIS Outpatient Bal, Karnia [id number] 04/02/2018 11:35:00 04/02/2018 23:59:00 DIS Outpatient BalKarina [id number] 03/29/2018 14:41:00 03/29/2018 23:59:00 DIS Outpatient BalKarina [id number] 01/11/2018 09:35:00 01/11/2018 23:59:00 DIS Outpatient Karina Selby [id number] 10/17/2017 08:44:00 10/17/2017 23:59:00 DIS Outpatient ANGELBARBY [id number] 08/24/2017 11:58:00 08/24/2017 23:59:00 DIS Outpatient Karina Selby [id number] 07/06/2017 10:37:00 07/06/2017 23:59:00 DIS Outpatient ANGELBARBY [id number] 03/14/2017 12:06:00 03/14/2017 23:59:00 DIS Outpatient Karina Selby [id number] 12/28/2016 11:38:00 12/28/2016 23:59:00 DIS Outpatient Karina Selby [id number] 10/13/2016 09:46:00 10/13/2016 23:59:00 DIS Outpatient Elmira Damon [id number] 04/21/2019 11:28:34 Document Registration [id number] 01/30/2019 09:45:34 Document Registration [id number] 05/29/2019 12:09:00 Document Registration
[2019-06-06 10:36] VITALS: BP 160/71
== END 2019-06-06 10:36 | disposition home or self-care (01) ==
LOC: EDUNIT# 09:36 → ER 09:37
DX: K27.9 Peptic ulcer, site unspecified, unspecified as acute or chronic, without hemorrhage or perforation (principal); I25.10 Atherosclerotic heart disease of native coronary artery without angina pectoris; I10 Essential (primary) hypertension; K21.9 Gastro-esophageal reflux disease without esophagitis; E03.9 Hypothyroidism, unspecified; Z87.442 Personal history of urinary calculi; Z88.1 Allergy status to other antibiotic agents; Z88.0 Allergy status to penicillin; Z90.89 Acquired absence of other organs; Z95.5 Presence of coronary angioplasty implant and graft
CPT/HCPCS: 99283

== ENCOUNTER 2019-07-21 10:21 | Outpatient (RCR) | payer MEDICARE, OTHER | END 2019-07-22 | disposition home or self-care (01) | LOC: CR 10:21 | PROVIDERS: ATTEND Internal Medicine Cardiovascular Disease | DX: Z48.812 Encounter for surgical aftercare following surgery on the circulatory system (principal); Z95.5 Presence of coronary angioplasty implant and graft | CPT/HCPCS: 93798 ==

== ENCOUNTER 2019-08-14 11:15 | Outpatient (RCR) | payer MEDICARE, OTHER | END 2019-09-17 08:52 | disposition home or self-care (01) | PROVIDERS: ATTEND Family Medicine | DX: M54.5 Low back pain (principal) ==

== ENCOUNTER → 2019-09-22 | Outpatient (CLI) | payer MEDICARE, OTHER ==
[2019-09-22 14:24] LABS: ALBUMIN 3.8 GM/DL (3.2-4.5); BILIRUBIN,TOTAL 0.4 MG/DL (0.1-1.0); CALCIUM 9.3 MG/DL (8.5-10.1); CREATININE SERUM 1.2 MG/DL (0.60-1.30); POTASSIUM 4.2 MMOL/L (3.6-5.0); TOTAL PROTEIN 7.6 GM/DL (6.4-8.2)
== END ==
LOC: LAB 13:41
PROVIDERS: ATTEND Internal Medicine Cardiovascular Disease
DX: I10 Essential (primary) hypertension (principal); R55 Syncope and collapse; Z86.73 Personal history of transient ischemic attack (TIA), and cerebral infarction without residual deficits
CPT/HCPCS: 36415; 80053; 80061

== ENCOUNTER 2019-09-29 13:20 | Outpatient (RCR) | payer MEDICARE, OTHER | END 2019-10-21 | disposition home or self-care (01) | LOC: CR 13:20 | PROVIDERS: ATTEND Internal Medicine Cardiovascular Disease | DX: Z48.812 Encounter for surgical aftercare following surgery on the circulatory system (principal); Z95.5 Presence of coronary angioplasty implant and graft | CPT/HCPCS: 93798 ==

== ENCOUNTER 2019-12-01 11:36 | Outpatient (RCR) | payer MEDICARE, OTHER | END 2019-12-03 | disposition home or self-care (01) | LOC: CR3 11:36 | PROVIDERS: ATTEND Internal Medicine Cardiovascular Disease | DX: Z29.8 Encounter for other specified prophylactic measures (principal) ==

== ENCOUNTER 2019-12-08 11:21 | Outpatient (RCR) | payer MEDICARE, OTHER | END 2020-01-04 | disposition home or self-care (01) | LOC: CR3 11:21 | PROVIDERS: ATTEND Internal Medicine Cardiovascular Disease | DX: Z29.8 Encounter for other specified prophylactic measures (principal) ==

== ENCOUNTER → 2020-07-06 | Outpatient (CLI) | payer MEDICARE, OTHER | LOC: CARD 14:00 | PROVIDERS: ATTEND Physician Assistant | DX: I35.1 Nonrheumatic aortic (valve) insufficiency (principal); I10 Essential (primary) hypertension; R55 Syncope and collapse | CPT/HCPCS: 93306 ==